=== PATIENT | female | born 2005 | race Caucasian/White ===

== ENCOUNTER 2024-10-30 13:37 | Outpatient (AMB) | payer MEDICAID, SELFPAY ==
--- NOTE | 2024-10-30 13:50 | AMB.OBINITIA ---
Vital Signs 10/30/24 13:53 Height 1.6 m Height Method Stated Weight 68.606 kg Weight Measurement Method Standing Scale BMI 26.8 BP 119/64 Blood Pressure Source Automatic Cuff Blood Pressure Location Left Upper Arm Position Sitting Respiration 18 Pulse 69 Pulse Source Monitor Temp 97.2 F Temp Source Oral Pulse Oximetry (%) 99 Oxygen Delivery Method Room Air Allergies/Home Meds Allergies & Medications Allergies No Known Allergies Allergy (Verified 10/30/24 13:54) Medication Reconciliation No Known Home Medications 10/30/24 [History Confirmed 10/30/24] Intake Visit Data Collection New Patient or Established: New Patient (never been to [facility]) Reason for Visit:: NOBI Seen by Clinical Staff ONLY (RN/MA): No Construction Services Technician Required: No Do You Feel Safe at Home: Yes Authorities Contacted: N/A PCP or OBGYN visit in last 3 months: No Hx Now: Yes Are you currently on any form of Control: No Last menstrual period: 09/12/24 Pain Present Currently: No Pain Scale Used: Neil-Guzman/Numerical Pain scale:: 0 Smoking Status Smoking Status: Never smoker Questionnaires Covid-19 Vaccine Questionnaire Has patient been vacinated for Covid-19 Have you been vacinated for Covid-19: No PHQ-9 PHQ-2 Over the last 2 weeks, how often have you been bothered by any of the following problems? 1. Little interest or pleasure in doing things: not at all 2. Feeling down, depressed, or hopeless: not at all Total score: 0 PHQ-9 3. Trouble falling or staying asleep, or sleeping too much: Not at all 4. Feeling tired or having little energy: Not at all 5. Poor appetite or overeating: Not at all 6. Feeling bad about yourself - or that you are a failure or have let yourself or your family down: Not at all 7. Trouble concentrating on things, such as reading the newspaper or watching television: Not at all 8. Moving or speaking so slowly that other people could have noticed? - Or the opposite - being so fidgety or restless that you have been moving around a lot more than usual: not at all 9. Thoughts that you would be better off or of hurting yourself in some way: Not at all Total score: 0 If you checked off any problems, how difficult have these problems made it for you to do your work, take care of things at home, or get along with other people?: not difficult at all Source: Developed by Drs. Alexander Vargas, Keyla Dyer, Vernon Solis and colleagues, with an educational gordy from [employer]. Depression screen completed yes Social History Living Situation History Marital Status: Lives With: Family Housing: House Tobacco History Smoking Status: Never smoker Second Hand Smoke Exposure: No Alcohol History Alcohol Intake: Never Domestic Abuse History Do You Feel Safe at Home: Yes Past Medical History Past Medical History Have you ever been diagnosed with any of the following: History of Present Illness HPI Narrative 19-year-old 2 para 0 first visit to [facility] OB clinic. Patient is here for new OB. Last period September 12, 2024. This gives EDC 06/19/2025. Patient 7 weeks today. Sure dates. Patient denies social habits. Denies surgeries. Denies chronic illness. Her and her partner are excited to have a baby. Patient reports that she feels good she does not have any complaints at all of her right right now. Denies any signs of miscarriage OB Initial Visit OB Flowsheet OB Flowsheet Initial Weight: Not Recorded Date <del>?</del> EGA Weight Edema CTX Effacement BP Fundal ht Pres Dilation Effacement Station Visit Note Alb Glu FHR Mov 10/30/24 <del>?</del> 6w 6d 68.606 kg absent absent 119/64 6.0 19-year-old 2 para 0 for OBI today. She has sure dates. Last. September 12, 2024. This gives EDC of 06/19/2025. Patient has no complaints today. Denies SAB complaints. Order OB panel today. And I ordered an ultrasound at [facility] for viability and dates. And patient to continue vitamins. Return in 4 weeks OB check Menstrual History Menstrual reliability: definite Flow: normal Menstrual regularity: regular Monthly: Yes Age at menarche: 10 On control pills at conception: No Associated symptoms (LMP): Reports nausea OB History : 2 Para: 0 Hx # Pregnancies: 0 Hx Total # of Abortions (Spontaneous & Elective): 1 # of Living Children: 0 Infection History & Risk Evaluation History of STDs: none HIV risk evaluation: low risk Hepatitis B risk evaluation: low risk Patient or partner has history of Genital Herpes: No Varicella/chicken pox status: immunized Genetic Screening & History Genetic Screening/Teratology Counseling - Includes patient, baby's father, or anyone in either family with: 1. Patient's age 35 years or older as of estimated date of delivery: No 2. Thalassemia (Lao, British, Mediterranean, or Background); MCV less than 80: No 3. Neural Tube Defect (Meningomyelocele, Spina Bifida, or Anencephaly): No 4. Congenital Heart Defect: No 5. Down Syndrome: No 6. Ranjit-Sachs (Ashkenazi Presybeterian, Cajun, Ukrainian [place]): No 7. Sonali Disease (Ashkenazi Presybeterian): No 8. Familial Dysautonomia (Ashkenazi Presybeterian): No 9. Sickle Cell Disease or Trait (): No 10. Hemophilia or other blood disorders: No 11. Muscular Dystrophy: No 12. Cystic Fibrosis: No 13. [place]'s Chorea: No 14. Mental Retardation/Autism: No 15. Other inherited genetic or chromosomal disorder: No 16. Maternal Metabolic Disorder (EG,TYPE 1 Diabetes, PKU): No 17. Patient or baby's father had a child with defects not listed above: No 18. Recurrent loss or a stillbirth: No 19. Medications (including supplements, vitamins, herbs or otc drugs)/illicit/recreational drugs/alcohol since last menstrual period: No 20. Any other: No Infection History 1. Live with someone with TB or exposed to TB: No 2. Rash or viral illness since last menstrual period: No 3. Hepatitis B,C: No Other (see comments) Source: [employer] Review of Systems Review of Systems Systems Reviewed: All systems reviewed, normal except as documented Gastrointestinal Gastrointestinal: Reports nausea Exam General Limitations: no limitations General Appearance: alert, in no apparent distress, comfortable, cooperative, healthy appearing, well developed and well groomed Chest Chest inspection: Present normal inspection and symmetric chest wall rise Resp Respiratory exam: Present normal lung sounds bilaterally Card Cardiovascular exam: Present regular rate, normal rhythm and normal heart sounds Abdominal Abdominal exam: Present soft and normal bowel sounds Psych Psychiatric exam: Present normal affect and normal mood Assessment & Plan Diagnosis / Problem List (1) Encounter for supervision of normal first , first trimester: Status: Acute Plan Continue vitamins. Order OB panel today. Scheduled ultrasound for viability and dates. Discussed comfort measures for first trimester discomforts. Discussed diet and regular exercise. SAB precautions. Return in 4 weeks OB check. Additional Plan Follow Up: 4 Weeks (4 week OBC) Office Procedures OB Clinic LOC & Office Proc's Nursing/Assessment Patient Status: Initial/New Patient OB Clinic Nursing Assessment: BP Monitoring, Medication Reconciliation, Update PMH in EMR and Vital Signs OB Clinic Coordination of Care: Complex Care and Chronic Disease 1-5, Consent,records obtained, informed consent, Lab and Imaging orders and Staff clarify orders New Patient Charge New Patient Point Assignment: [id number] New Patient Point Charge: SLATE HANDLER Level 3 ([id number])
[2024-10-30 13:53] VITALS: BP 119/64; PULSE 69; RESP 18; TEMP 36.2; O2SAT 99; BMI 26.8
== END 2024-10-30 14:03 | disposition home or self-care (01) ==
LOC: HODSOBC 13:37
PROVIDERS: Supervising Provider Advanced Practice Midwife; Visit Provider Advanced Practice Midwife
DX: Z34.81 Encounter for supervision of other normal pregnancy, first trimester (principal); Z3A.01 Less than 8 weeks gestation of pregnancy; Z87.59 Personal history of other complications of pregnancy, childbirth and the puerperium
CPT/HCPCS: 99203; G0463

== ENCOUNTER 2024-11-27 14:57 | Outpatient (AMB) | payer MEDICAID, SELFPAY ==
--- NOTE | 2024-11-27 15:07 | AMB.OBVISIT ---
Vital Signs 11/27/24 15:13 Height 1.6 m Height Method Stated Weight 69.626 kg Weight Measurement Method Standing Scale BMI 27.1 BP 123/74 Blood Pressure Source Automatic Cuff Blood Pressure Location Right Upper Arm Position Sitting Respiration 18 Pulse 98 Pulse Source Monitor Temp 98.4 F Temp Source Oral Pulse Oximetry (%) 98 Oxygen Delivery Method Room Air Allergies/Home Meds Allergies & Medications Allergies No Known Allergies Allergy (Verified 11/27/24 15:14) Medication Reconciliation No Known Home Medications 10/30/24 [History Confirmed 11/27/24] Intake Visit Data Collection New Patient or Established: Established Patient (seen at [facility] within 3 years) Reason for Visit:: CARE Seen by Clinical Staff ONLY (RN/MA): No Us Marketing Director Required: No Do You Feel Safe at Home: Yes Authorities Contacted: N/A PCP or OBGYN visit in last 3 months: Yes Hx Now: Yes Are you currently on any form of Control: No Pain Present Currently: No Pain Scale Used: Neil-Guzman/Numerical Pain scale:: 0 Smoking Status Smoking Status: Never smoker Questionnaires Covid-19 Vaccine Questionnaire Has patient been vacinated for Covid-19 Have you been vacinated for Covid-19: Yes PHQ-9 PHQ-2 Over the last 2 weeks, how often have you been bothered by any of the following problems? 1. Little interest or pleasure in doing things: not at all 2. Feeling down, depressed, or hopeless: not at all Total score: 0 PHQ-9 3. Trouble falling or staying asleep, or sleeping too much: Not at all 4. Feeling tired or having little energy: Not at all 5. Poor appetite or overeating: Not at all 6. Feeling bad about yourself - or that you are a failure or have let yourself or your family down: Not at all 7. Trouble concentrating on things, such as reading the newspaper or watching television: Not at all 8. Moving or speaking so slowly that other people could have noticed? - Or the opposite - being so fidgety or restless that you have been moving around a lot more than usual: not at all 9. Thoughts that you would be better off or of hurting yourself in some way: Not at all Total score: 0 Source: Developed by Drs. Alexander Vargas, Keyla Dyer, Vernon Solis and colleagues, with an educational gordy from [employer]. Depression screen completed yes Social History Living Situation History Lives With: Family Housing: House Tobacco History Smoking Status: Never smoker Second Hand Smoke Exposure: No Alcohol History Alcohol Intake: Never Domestic Abuse History Do You Feel Safe at Home: Yes Care OB Visit Log OB Flowsheet Initial Weight: Not Recorded Date <del>?</del> EGA Weight BP Alb Glu CTX Pres Fundal ht FHR Mov Dilation Station Effacement Hx Notes Visit Note 10/30/24 <del>?</del> 6w 5d 68.606 kg 119/64 absent 6.0 19-year-old 2 para 0 for OBI today. She has sure dates. Last. September 12, 2024. This gives EDC of 06/19/2025. Patient has no complaints today. Denies SAB complaints. Order OB panel today. And I ordered an ultrasound at [facility] for viability and dates. And patient to continue vitamins. Return in 4 weeks OB check 11/27/24 <del>?</del> 10w 5d 69.626 kg 123/74 absent unknown 11 170 active no c/o SAB symptom. no compliants of [address] [place] [address] discomfort. compliant with PNV. NIPT and carrier screen today, schedule MFM anatomy scan schedule mfm scan, NIPT and carrier screen, RTC 4 week.continue PNV REDD Calculator Estimated Delivery Date Method Current WG Current Estimate 06/20/25 Ultrasound #1 10w 5d Other Estimates 06/19/25 LMP (Certain) 10w 6d Notes Visit Date: 11/27/24 Last Updated by: Amy Willard CNM 19 yo . LMP 09/12/24. EDC 06/19/25, sono 11/07: 7w:: 06/21/25. A+,abs-,rpr;;nr, rub imm, hbssag-,hiv-,GC/CT-, HC-, Office Procedures OB Clinic LOC & Office Proc's Nursing/Assessment Patient Status: Established Patient OB Clinic Nursing Assessment: Medication Reconciliation, Update PMH in EMR and Vital Signs OB Clinic Coordination of Care: Complex Care and Chronic Disease 1-5, Consent,records obtained, informed consent, Education Simp Pt/Fam, Lab and Imaging orders, Results/Orders obtained and Staff clarify orders Special Needs: Heart tones Established Patient Charge Established Patient Point Assignment: 135 Established Patient Point Charge: EP Level 4 (120-155) Assessment & Plan Diagnosis / Problem List (1) Encounter for supervision of normal first , first trimester: Status: Acute Plan NIPT and carrier screen, schedule MFM anatomy scan, continue PNV, sab precaution. rtc 4 week OBC Additional Plan Follow Up: 4 Weeks (OBC)
[2024-11-27 15:13] VITALS: BP 123/74; PULSE 98; RESP 18; TEMP 36.9; O2SAT 98; BMI 27.1
== END 2024-11-27 15:40 | disposition home or self-care (01) ==
LOC: HODSOBC 14:57
PROVIDERS: Supervising Provider Advanced Practice Midwife; Visit Provider Advanced Practice Midwife
DX: Z34.81 Encounter for supervision of other normal pregnancy, first trimester (principal); Z3A.10 10 weeks gestation of pregnancy
CPT/HCPCS: 81001; 99214; G0463

== ENCOUNTER 2024-12-25 14:52 | Outpatient (AMB) | payer MEDICAID, SELFPAY ==
--- NOTE | 2024-12-25 15:43 | OBCLNT_ITS ---
Vital Signs 12/25/24 15:44 Height 1.6 m Height Method Stated Weight 73.595 kg Weight Measurement Method Standing Scale BMI 28.7 BP 115/70 Blood Pressure Source Automatic Cuff Blood Pressure Location Right Upper Arm Position Sitting Respiration 17 Pulse 68 Pulse Source Monitor Temp 98.0 F Temp Source Temporal Artery Scan Pulse Oximetry (%) 98 Oxygen Delivery Method Room Air Allergies/Home Meds Allergies & Medications Allergies No Known Allergies Allergy (Verified 12/25/24 15:44) Medication Reconciliation No Known Home Medications 10/30/24 [History Confirmed 12/25/24] Intake Visit Data Collection New Patient or Established: Established Patient (seen at [facility] within 3 years) Reason for Visit:: OBC Seen by Clinical Staff ONLY (RN/MA): No President Celebrity Acquistion Required: No Do You Feel Safe at Home: Yes Authorities Contacted: N/A PCP or OBGYN visit in last 3 months: Yes Date of Last PCP or OBGYN visit: 11/27/24 Hx Now: Yes Are you currently on any form of Control: No Pain Present Currently: No Pain Scale Used: Neil-Guzman/Numerical Pain scale:: 0 Smoking Status Smoking Status: Never smoker Questionnaires Covid-19 Vaccine Questionnaire Has patient been vacinated for Covid-19 Have you been vacinated for Covid-19: No PHQ-9 PHQ-2 Over the last 2 weeks, how often have you been bothered by any of the following problems? 1. Little interest or pleasure in doing things: not at all 2. Feeling down, depressed, or hopeless: not at all Total score: 0 PHQ-9 3. Trouble falling or staying asleep, or sleeping too much: Not at all 4. Feeling tired or having little energy: Not at all 5. Poor appetite or overeating: Not at all 6. Feeling bad about yourself - or that you are a failure or have let yourself or your family down: Not at all 7. Trouble concentrating on things, such as reading the newspaper or watching television: Not at all 8. Moving or speaking so slowly that other people could have noticed? - Or the opposite - being so fidgety or restless that you have been moving around a lot more than usual: not at all 9. Thoughts that you would be better off or of hurting yourself in some way: Not at all Total score: 0 If you checked off any problems, how difficult have these problems made it for you to do your work, take care of things at home, or get along with other people?: not difficult at all Source: Developed by Drs. Alexander Vargas, Keyla Dyer, Vernon Solis and colleagues, with an educational gordy from [employer]. Depression screen completed yes Social History Living Situation History Marital Status: Lives With: Family Housing: House Tobacco History Smoking Status: Never smoker Second Hand Smoke Exposure: No Alcohol History Alcohol Intake: Never Domestic Abuse History Do You Feel Safe at Home: Yes Care OB Visit Log OB Flowsheet Initial Weight: Not Recorded Date -?-?-?-?-?-?-?-?-?-?-?-?- EGA Weight BP Alb Glu CTX Pres Fundal ht FHR Mov Dilation Station Effacement Hx Notes Visit Note 10/30/24 -?-?-?-?-?-?-?-?-?-?-?-?- 6w 5d 68.606 kg 119/64 absent 6.0 19-year-old 2 para 0 for OBI today. She has sure dates. Last. September 12, 2024. This gives EDC of 06/19/2025. Patient has no complaints today. Denies SAB complaints. Order OB panel today. And I ordered an ultrasound at [facility] for viability and dates. And patient to continue vitamins. Return in 4 weeks OB check 11/27/24 -?-?-?-?-?-?-?-?-?-?-?-?- 10w 5d 69.626 kg 123/74 absent unknown 11 170 active no c/o SAB symptom. no compliants of [address] [place] [address] discomfort. compliant with PNV. NIPT and carrier screen today, schedule MFM anatomy scan schedule mfm scan, NIPT and carrier screen, RTC 4 week.continue PNV 12/25/24 -?-?-?-?-?-?-?-?-?-?-?-?- 14w 5d 73.595 kg 115/70 absent unknown 15 156 active NO ob complaints. mfm today, f/u 01/06 for poor dates, no complaints today afp/NIPT draw on 01/04, f/u mfm 01/06, poor dates, discuss SAB precaution, hydrate, rtc 4 week REDD Calculator Estimated Delivery Date Method Current WG Current Estimate 06/20/25 Ultrasound #1 14w 5d Other Estimates 06/19/25 LMP (Certain) 14w 6d Notes Visit Date: 11/27/24 Last Updated by: Amy Willard, CNM 19 yo . LMP 09/12/24. EDC 06/19/25, sono 11/07: 7w:: 06/21/25. A+,abs- ,rpr;;nr, rub imm, hbssag-,hiv-,GC/CT-, HC-, Office Procedures OB Clinic LOC & Office Proc's Nursing/Assessment Patient Status: Established Patient OB Clinic Nursing Assessment: Medication Reconciliation, Update PMH in EMR and Vital Signs OB Clinic Coordination of Care: Complex Care and Chronic Disease 1-5, Consent,records obtained, informed consent, Education Simp Pt/Fam and Staff clarify orders Special Needs: Heart tones Established Patient Charge Established Patient Point Assignment: 115 Established Patient Point Charge: EP Level 3 (80-115) Assessment & Plan Diagnosis / Problem List (1) Supervision of high risk , unspecified, second trimester: Status: Acute Plan AFP/NOPT 01/04. discuss sab precaution and dates, f/u mfm 01/06. rtc 4 week obc Additional Plan Follow Up: 4 Weeks (obc)
[2024-12-25 15:44] VITALS: BP 115/70; PULSE 68; RESP 17; TEMP 36.7; O2SAT 98; BMI 28.7
== END 2024-12-25 16:04 | disposition home or self-care (01) ==
PROVIDERS: Supervising Provider Advanced Practice Midwife; Visit Provider Advanced Practice Midwife
DX: O09.92 Supervision of high risk pregnancy, unspecified, second trimester (principal); Z3A.14 14 weeks gestation of pregnancy
CPT/HCPCS: 99213; G0463

== ENCOUNTER 2025-01-22 15:14 | Outpatient (AMB) | payer MEDICAID, SELFPAY ==
[2025-01-22 15:17] VITALS: BP 122/75; PULSE 74; RESP 17; TEMP 36.8; O2SAT 98; BMI 29.6
--- NOTE | 2025-01-22 15:17 | OBCLNT_ITS ---
Vital Signs 01/22/25 15:17 Height 1.6 m Height Method Measured Weight 75.863 kg Weight Measurement Method Standing Scale BMI 29.6 BP 122/75 Blood Pressure Source Automatic Cuff Blood Pressure Location Right Upper Arm Position Sitting Respiration 17 Pulse 74 Pulse Source Monitor Temp 98.2 F Temp Source Temporal Artery Scan Pulse Oximetry (%) 98 Oxygen Delivery Method Room Air Allergies/Home Meds Allergies & Medications Allergies No Known Allergies Allergy (Verified 01/22/25 15:18) Medication Reconciliation vits no.126-ferrous fum 28 mg iron-folic acid 800 mcg tablet (Classic ) tab PO 01/22/25 [History Confirmed 01/22/25] Intake Visit Data Collection New Patient or Established: Established Patient (seen at [facility] within 3 years) Reason for Visit:: OBC Consent obtained for Telemed Visit: No Seen by Clinical Staff ONLY (RN/MA): No Senior Unix Administrator Required: No Do You Feel Safe at Home: Yes Authorities Contacted: N/A PCP or OBGYN visit in last 3 months: Yes Date of Last PCP or OBGYN visit: 12/25/24 Hx Now: Yes Are you currently on any form of Control: No Pain Present Currently: No Pain Scale Used: Neil-Guzman/Numerical Pain scale:: 0 Smoking Status Smoking Status: Never smoker Questionnaires Covid-19 Vaccine Questionnaire Has patient been vacinated for Covid-19 Have you been vacinated for Covid-19: Yes PHQ-9 PHQ-2 Over the last 2 weeks, how often have you been bothered by any of the following problems? 1. Little interest or pleasure in doing things: not at all 2. Feeling down, depressed, or hopeless: not at all Total score: 0 PHQ-9 3. Trouble falling or staying asleep, or sleeping too much: Not at all 4. Feeling tired or having little energy: Not at all 5. Poor appetite or overeating: Not at all 6. Feeling bad about yourself - or that you are a failure or have let yourself or your family down: Not at all 7. Trouble concentrating on things, such as reading the newspaper or watching television: Not at all 8. Moving or speaking so slowly that other people could have noticed? - Or the opposite - being so fidgety or restless that you have been moving around a lot more than usual: not at all 9. Thoughts that you would be better off or of hurting yourself in some way: Not at all Total score: 0 If you checked off any problems, how difficult have these problems made it for you to do your work, take care of things at home, or get along with other people?: not difficult at all Source: Developed by Drs. Alexander Vargas, Keyla Dyer, Vernon Solis and colleagues, with an educational gordy from [employer]. Depression screen completed yes Social History Living Situation History Lives With: Family Housing: House Tobacco History Smoking Status: Never smoker Second Hand Smoke Exposure: No Alcohol History Alcohol Intake: Never Domestic Abuse History Do You Feel Safe at Home: Yes Care OB Visit Log OB Flowsheet Initial Weight: Not Recorded Date -?-?-?-?-?-?-?-?-?-?-?-?- EGA Weight BP Alb Glu CTX Pres Fundal ht FHR Mov Dilation Station Effacement Hx Notes Visit Note 10/30/24 -?-?-?-?-?-?-?-?-?-?-?-?- 6w 5d 68.606 kg 119/64 absent 6.0 19-year-old 2 para 0 for OBI today. She has sure dates. Last. September 12, 2024. This gives EDC of 06/19/2025. Patient has no complaints today. Denies SAB complaints. Order OB panel today. And I ordered an ultrasound at [facility] for viability and dates. And patient to continue vitamins. Return in 4 weeks OB check 11/27/24 -?-?-?-?-?-?-?-?-?-?-?-?- 10w 5d 69.626 kg 123/74 absent unknown 11 170 active no c/o SAB symptom. no compliants of discomfort. compliant with PNV. NIPT and carrier screen today, schedule MFM anatomy scan schedule mfm scan, NIPT and carrier screen, RTC 4 week.continue PNV 12/25/24 -?-?-?-?-?-?-?-?-?-?-?-?- 14w 5d 73.595 kg 115/70 absent unknown 15 156 active NO ob complaints. mfm today, f/u 01/06 for poor dates, no complaints today afp/NIPT draw on 01/04, f/u mfm 01/06, poor dates, discuss SAB precaution, hydrate, rtc 4 week 01/22/25 -?-?-?-?-?-?-?-?-?-?-?-?- 18w 5d 75.863 kg 122/75 absent unknown 18 156 active no ob complaints, + FM, no uc,vb,ROM. mfm appt, 02/05/25 RTC 4 wk obc, discuss sab/ptl precaution, f/u with [facility] 02/05/25 REDD Calculator Estimated Delivery Date Method Current WG Current Estimate 06/20/25 Ultrasound #1 18w 5d Other Estimates 06/19/25 LMP (Certain) 18w 6d Notes Visit Date: 01/22/25 Last Updated by: Amy Willard CNM 01/22/25: NIPT:neg/female, carrier screen negative, AFP- Visit Date: 11/27/24 Last Updated by: Amy Willard CNM 19 yo . LMP 09/12/24. EDC 06/19/25, sono 11/07: 7w:: 06/21/25. A+,abs- ,rpr;;nr, rub imm, hbssag-,hiv-,GC/CT-, HC-, Office Procedures OB Clinic LOC & Office Proc's Nursing/Assessment Patient Status: Established Patient OB Clinic Nursing Assessment: Medication Reconciliation, Update PMH in EMR and Vital Signs OB Clinic Coordination of Care: Complex Care and Chronic Disease 1-5, Consent,records obtained, informed consent, Education Simp Pt/Fam and 4+ Authorizations needed Special Needs: Heart tones Established Patient Charge Established Patient Point Assignment: 130 Established Patient Point Charge: EP Level 4 (120-155) Assessment & Plan Diagnosis / Problem List (1) Supervision of high risk , unspecified, second trimester: Status: Acute Plan discuss sab precaution/ptl precaution, keep mfm appt,02/05. hydrate. continue pnv. discuss NIPT/AFP. rtc 4 week obc Additional Plan Follow Up: 4 Weeks (obc)
== END 2025-01-22 15:44 | disposition home or self-care (01) ==
LOC: HODSOBC 15:14
PROVIDERS: Supervising Provider Advanced Practice Midwife; Visit Provider Advanced Practice Midwife
DX: O09.92 Supervision of high risk pregnancy, unspecified, second trimester (principal); Z3A.18 18 weeks gestation of pregnancy
CPT/HCPCS: 99214; G0463

== ENCOUNTER 2025-02-19 14:50 | Outpatient (AMB) | payer MEDICAID, SELFPAY ==
[2025-02-19 15:17] VITALS: BP 127/80; PULSE 76; RESP 17; TEMP 36.6; O2SAT 98; BMI 30.9
--- NOTE | 2025-02-19 15:17 | OBCLNT_ITS ---
Vital Signs 02/19/25 15:17 Height 1.6 m Height Method Measured Weight 79.038 kg Weight Measurement Method Standing Scale BMI 30.9 BP 127/80 Blood Pressure Source Automatic Cuff Blood Pressure Location Right Upper Arm Position Sitting Respiration 17 Pulse 76 Pulse Source Monitor Temp 97.8 F Temp Source Temporal Artery Scan Pulse Oximetry (%) 98 Oxygen Delivery Method Room Air Allergies/Home Meds Allergies & Medications Allergies No Known Allergies Allergy (Verified 02/19/25 15:18) Medication Reconciliation vits no.126-ferrous fum 28 mg iron-folic acid 800 mcg tablet (Classic ) tab PO 01/22/25 [History Confirmed 02/19/25] Intake Visit Data Collection New Patient or Established: Established Patient (seen at [facility] within 3 years) Reason for Visit:: OBC Consent obtained for Telemed Visit: No Seen by Clinical Staff ONLY (RN/MA): No Java Solutions Architect Required: No Do You Feel Safe at Home: Yes Authorities Contacted: N/A PCP or OBGYN visit in last 3 months: Yes Date of Last PCP or OBGYN visit: 01/22/25 Hx Now: Yes Are you currently on any form of Control: No Pain Present Currently: No Pain Scale Used: Neil-Guzman/Numerical Pain scale:: 0 Smoking Status Smoking Status: Never smoker Questionnaires Covid-19 Vaccine Questionnaire Has patient been vacinated for Covid-19 Have you been vacinated for Covid-19: Yes PHQ-9 PHQ-2 Over the last 2 weeks, how often have you been bothered by any of the following problems? 1. Little interest or pleasure in doing things: not at all PHQ-9 8. Moving or speaking so slowly that other people could have noticed? - Or the opposite - being so fidgety or restless that you have been moving around a lot more than usual: not at all Source: Developed by Drs. Alexander Vargas, Keyla Dyer, Vernon Solis and colleagues, with an educational gordy from [employer]. Social History Living Situation History Lives With: Family Housing: House Tobacco History Smoking Status: Never smoker Second Hand Smoke Exposure: No Alcohol History Alcohol Intake: Never Domestic Abuse History Do You Feel Safe at Home: Yes Care OB Visit Log OB Flowsheet Initial Weight: Not Recorded Date -?-?-?-?-?-?-?-?-?-?-?-?- EGA Weight BP Alb Glu CTX Pres Fundal ht FHR Mov Dilation Station Effacement Hx Notes Visit Note 10/30/24 -?-?-?-?-?-?-?-?-?-?-?-?- 6w 6d 68.606 kg 119/64 absent 6.0 19-year-old 2 para 0 for OBI today. She has sure dates. Last. September 12, 2024. This gives EDC of 06/19/2025. Patient has no complaints today. Denies SAB complaints. Order OB panel today. And I ordered an ultrasound at [facility] for viability and dates. And patient to continue vitamins. Return in 4 weeks OB check 11/27/24 -?-?-?-?-?-?-?-?-?-?-?-?- 10w 6d 69.626 kg 123/74 absent unknown 11 170 active no c/o SAB symptom. no compliants of [facility] discomfort. compliant with PNV. NIPT and carrier screen today, schedule MFM anatomy scan schedule mfm scan, NIPT and carrier screen, RTC 4 week.continue PNV 12/25/24 -?-?-?-?-?-?-?-?-?-?-?-?- 14w 6d 73.595 kg 115/70 absent unknown 15 156 active NO ob complaints. mfm today, f/u 01/06 for poor dates, no complaints today afp/NIPT draw on 01/04, f/u mfm 01/06, poor dates, discuss SAB precaution, hydrate, rtc 4 week 01/22/25 -?-?-?-?-?-?-?-?-?-?-?-?- 18w 6d 75.863 kg 122/75 absent unknown 18 156 active no ob complaints, + FM, no uc,vb,ROM. mfm appt, 02/05/25 RTC 4 wk obc, discuss sab/ptl precaution, f/u with MFM 02/05/25 02/19/25 -?-?-?-?-?-?-?-?-?-?-?-?- 22w 6d 79.038 kg 127/80 absent unknown 22 156 active No OB complaints. Fetus active. Denies leaking, denies bleeding, denies contractions. Return in 4 weeks for OB check. Third trimester labs next visit. Follow-up ultrasound at 32 weeks for growth. Discussed labor precautions REDD Calculator Estimated Delivery Date Method Current WG Current Estimate 06/19/25 LMP (Certain) 22w 6d Other Estimates 06/20/25 Ultrasound #1 22w 5d Notes Visit Date: 02/19/25 Last Updated by: Aym Willard CNM 19 yo . l1st sono 11/07/24 IUP 7w6. edc 06/20/25. OB panel: A+,abs-, rpr;;nr, rub imm, hbsag-, HIV-,HC-, gc/ct- lmp 09/12/24. EDC: 06/19/25 Visit Date: 01/22/25 Last Updated by: Amy Willard CNM 01/22/25: NIPT:neg/female, carrier screen negative, AFP- Visit Date: 11/27/24 Last Updated by: Amy Willard CNM 19 yo . LMP 09/12/24. EDC 06/19/25, sono 11/07: 7w:: 06/21/25. A+,abs- ,rpr;;nr, rub imm, hbssag-,hiv-,GC/CT-, HC-, Office Procedures OB Clinic LOC & Office Proc's Nursing/Assessment Patient Status: Established Patient OB Clinic Nursing Assessment: Medication Reconciliation, Update PMH in EMR and Vital Signs OB Clinic Coordination of Care: Complex Care and Chronic Disease 1-5, Consent,records obtained, informed consent, Education Simp Pt/Fam, 4+ Authorizations needed and Results/Orders obtained Special Needs: Heart tones Established Patient Charge Established Patient Point Assignment: 135 Established Patient Point Charge: EP Level 4 (120-155) Assessment & Plan Diagnosis / Problem List (1) Supervision of high risk , unspecified, second trimester: Status: Acute Plan 3rd tri lab NV, discuss ptl prcaution, continue PNV, increase fluid. f/u growth sono at 32 week. rtc 4 week Additional Plan Follow Up: 4 Weeks (obc)
== END 2025-02-19 15:28 | disposition home or self-care (01) ==
LOC: HODSOBC 14:50
PROVIDERS: Supervising Provider Advanced Practice Midwife; Visit Provider Advanced Practice Midwife
DX: O09.92 Supervision of high risk pregnancy, unspecified, second trimester (principal); Z3A.22 22 weeks gestation of pregnancy
CPT/HCPCS: 99214; G0463

== ENCOUNTER 2025-03-27 14:02 | Outpatient (AMB) | payer MEDICAID, SELFPAY ==
[2025-03-27 14:12] VITALS: BP 126/76; PULSE 71; RESP 14; TEMP 36.4; O2SAT 98; BMI 32.8
--- NOTE | 2025-03-27 14:12 | OBCLNT_ITS ---
Vital Signs 03/27/25 14:12 Height 1.6 m Height Method Stated Weight 83.915 kg Weight Measurement Method Standing Scale BMI 32.8 BP 126/76 Blood Pressure Source Automatic Cuff Blood Pressure Location Left Upper Arm Position Sitting Respiration 14 Pulse 71 Pulse Source Monitor Temp 97.6 F Temp Source Oral Pulse Oximetry (%) 98 Oxygen Delivery Method Room Air Allergies/Home Meds Allergies & Medications Allergies No Known Allergies Allergy (Verified 03/27/25 14:14) Medication Reconciliation vits no.126-ferrous fum 28 mg iron-folic acid 800 mcg tablet (Classic ) tab PO 01/22/25 [History Confirmed 03/27/25] Intake Visit Data Collection New Patient or Established: Established Patient (seen at [facility] within 3 years) Reason for Visit:: CARE Seen by Clinical Staff ONLY (RN/MA): No 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 1. Little interest or pleasure in doing things: not at all 2. Feeling down, depressed, or hopeless: not at all Total score: 0 PHQ-9 3. Trouble falling or staying asleep, or sleeping too much: Not at all 4. Feeling tired or having little energy: Not at all 5. Poor appetite or overeating: Not at all 6. Feeling bad about yourself - or that you are a failure or have let yourself or your family down: Not at all 7. Trouble concentrating on things, such as reading the newspaper or watching television: Not at all 8. Moving or speaking so slowly that other people could have noticed? - Or the opposite - being so fidgety or restless that you have been moving around a lot more than usual: not at all 9. Thoughts that you would be better off or of hurting yourself in some way: Not at all Total score: 0 Source: Developed by Drs. Alexander Vargas, Keyla Dyer, Vernon Solis and colleagues, with an educational gordy from [employer]. Depression screen completed yes Social History Living Situation History Lives With: Family Housing: House Tobacco History Smoking Status: Never smoker Second Hand Smoke Exposure: No Alcohol History Alcohol Intake: Never Domestic Abuse History Do You Feel Safe at Home: Yes Care OB Visit Log OB Flowsheet Initial Weight: Not Recorded Date -?-?-?-?-?-?-?-?-?-?-?-?- EGA Weight BP Alb Glu CTX Pres Fundal ht FHR Mov Dilation Station Effacement Hx Notes Visit Note 10/30/24 -?-?-?-?-?-?-?-?-?-?-?-?- 6w 6d 68.606 kg 119/64 absent 6.0 19-year-old 2 para 0 for OBI today. She has sure dates. Last. September 12, 2024. This gives EDC of 06/19/2025. Patient has no complaints today. Denies SAB complaints. Order OB panel today. And I ordered an ultrasound at [facility] for viability and dates. And patient to continue vitamins. Return in 4 weeks OB check 11/27/24 -?-?-?-?-?-?-?-?-?-?-?-?- 10w 6d 69.626 kg 123/74 absent unknown 11 170 active no c/o SAB symptom. no compliants of [facility] discomfort. compliant with PNV. NIPT and carrier screen today, schedule MFM anatomy scan schedule mfm scan, NIPT and carrier screen, RTC 4 week.continue PNV 12/25/24 -?-?-?-?-?-?-?-?-?-?-?-?- 14w 6d 73.595 kg 115/70 absent unknown 15 156 active NO ob complaints. mfm today, f/u 01/06 for poor dates, no complaints today afp/NIPT draw on 01/04, f/u mfm 01/06, poor dates, discuss SAB precaution, hydrate, rtc 4 week 01/22/25 -?-?-?-?-?-?-?-?-?-?-?-?- 18w 6d 75.863 kg 122/75 absent unknown 18 156 active no ob complaints, + FM, no uc,vb,ROM. [facility] appt, 02/05/25 RTC 4 wk obc, discuss sab/ptl precaution, f/u with [facility] 02/05/25 02/19/25 -?-?-?-?-?-?-?-?-?-?-?-?- 22w 6d 79.038 kg 127/80 absent unknown 22 156 active No OB complaints. Fetus active. Denies leaking, denies bleeding, denies contractions. Return in 4 weeks for OB check. Third trimester labs next visit. Follow-up ultrasound at 32 weeks for growth. Discussed labor precautions 03/27/25 -?-?-?-?-?-?-?-?-?-?-?-?- 28w 0d 83.915 kg 126/76 absent unknown 28 156 active No OB complaints. Fetus active. No labor complaints such as bleeding, leaking, contractions Discussed diet a nd weight gain. Avoid sugary foods. Lab slip for third trimester labs given. Schedule sono for growth. Discussed labor precautions. Return in 3 weeks OB check REDD Calculator Estimated Delivery Date Method Current WG Current Estimate 06/19/25 LMP (Certain) 28w 0d Other Estimates 06/20/25 Ultrasound #1 27w 6d 06/19/25 Ultrasound #2 28w 0d 06/19/25 Manual 28w 0d final REDD: 06/10 Notes Visit Date: 02/19/25 Last Updated by: Amy Willard CNM 19 yo . l1st sono 11/07/24 IUP 7w6. edc 06/20/25. OB panel: A+,abs-, rpr;;nr, rub imm, hbsag-, HIV-,HC-, gc/ct- lmp 09/12/24. EDC: 06/19/25 Visit Date: 01/22/25 Last Updated by: Amy Willard CNM 01/22/25: NIPT:neg/female, carrier screen negative, AFP- Visit Date: 11/27/24 Last Updated by: Amy Willard CNM 19 yo . LMP 09/12/24. EDC 06/19/25, sono 11/07: 7w:: 06/21/25. A+,abs- ,rpr;;nr, rub imm, hbssag-,hiv-,GC/CT-, HC-, Office Procedures OB Clinic LOC & Office Proc's Nursing/Assessment Patient Status: Established Patient OB Clinic Nursing Assessment: Medication Reconciliation, Update PMH in EMR and Vital Signs OB Clinic Coordination of Care: Complex Care and Chronic Disease 1-5, Consent,records obtained, informed consent, Education Simp Pt/Fam, 1 Ins Authorization, Lab and Imaging orders, Results/Orders obtained and Staff clarify orders Special Needs: Heart tones Established Patient Charge Established Patient Point Assignment: 150 Established Patient Point Charge: EP Level 4 (120-155) Assessment & Plan Diagnosis / Problem List (1) Encounter for supervision of high risk in third trimester, antepartum: Status: Acute Plan Third trimester labs. Discussed diet and weight gain. Avoid sugary foods. Schedule OB sono for growth. Discussed labor precautions. Return in 2 weeks OB check Additional Plan Follow Up: 3 Weeks (obc)
== END 2025-03-27 14:59 | disposition home or self-care (01) ==
LOC: HODSOBC 14:02
PROVIDERS: Supervising Provider Advanced Practice Midwife; Visit Provider Advanced Practice Midwife
DX: O09.93 Supervision of high risk pregnancy, unspecified, third trimester (principal); Z3A.28 28 weeks gestation of pregnancy
CPT/HCPCS: 99214; G0463

== ENCOUNTER 2025-04-24 15:05 | Outpatient (AMB) | payer MEDICAID, SELFPAY ==
--- NOTE | 2025-04-24 15:11 | AMB.OBVISIT ---
Vital Signs 04/24/25 15:12 Height 1.6 m Height Method Stated Weight 84.822 kg Weight Measurement Method Standing Scale BMI 33.1 BP 120/76 Blood Pressure Source Automatic Cuff Blood Pressure Location Right Upper Arm Position Sitting Respiration 17 Pulse 73 Pulse Source Monitor Temp 97.8 F Temp Source Temporal Artery Scan Pulse Oximetry (%) 98 Oxygen Delivery Method Room Air Allergies/Home Meds Allergies & Medications Allergies No Known Allergies Allergy (Verified 04/24/25 15:11) Medication Reconciliation vits no.126-ferrous fum 28 mg iron-folic acid 800 mcg tablet (Classic ) tab PO 01/22/25 [History Confirmed 04/24/25] Intake Visit Data Collection New Patient or Established: Established Patient (seen at [facility] within 3 years) Reason for Visit:: OBC Seen by Clinical Staff ONLY (RN/MA): No Hospital Monitor Required: No Do You Feel Safe at Home: Yes Authorities Contacted: N/A PCP or OBGYN visit in last 3 months: Yes Date of Last PCP or OBGYN visit: 03/27/25 Hx Now: Yes Are you currently on any form of Control: No Pain Present Currently: No Pain Scale Used: Neil-Guzman/Numerical Pain scale:: 0 Smoking Status Smoking Status: Never smoker Questionnaires Covid-19 Vaccine Questionnaire Has patient been vacinated for Covid-19 Have you been vacinated for Covid-19: Yes PHQ-9 PHQ-2 Over the last 2 weeks, how often have you been bothered by any of the following problems? 1. Little interest or pleasure in doing things: not at all 2. Feeling down, depressed, or hopeless: not at all Total score: 0 PHQ-9 3. Trouble falling or staying asleep, or sleeping too much: Not at all 4. Feeling tired or having little energy: Not at all 5. Poor appetite or overeating: Not at all 6. Feeling bad about yourself - or that you are a failure or have let yourself or your family down: Not at all 7. Trouble concentrating on things, such as reading the newspaper or watching television: Not at all 8. Moving or speaking so slowly that other people could have noticed? - Or the opposite - being so fidgety or restless that you have been moving around a lot more than usual: not at all 9. Thoughts that you would be better off or of hurting yourself in some way: Not at all Total score: 0 If you checked off any problems, how difficult have these problems made it for you to do your work, take care of things at home, or get along with other people?: not difficult at all Source: Developed by Drs. Alexander Vargas, Keyla Dyer, Vernon Solis and colleagues, with an educational gordy from [employer]. Depression screen completed yes Social History Living Situation History Marital Status: Life Partner Lives With: Family Housing: House Tobacco History Smoking Status: Never smoker Second Hand Smoke Exposure: No Alcohol History Alcohol Intake: Never Domestic Abuse History Do You Feel Safe at Home: Yes Care OB Visit Log OB Flowsheet Initial Weight: Not Recorded Date <del>?</del> EGA Weight BP Alb Glu CTX Pres Fundal ht FHR Mov Dilation Station Effacement Hx Notes Visit Note 10/30/24 <del>?</del> 6w 6d 68.606 kg 119/64 absent 6.0 19-year-old 2 para 0 for OBI today. She has sure dates. Last. September 12, 2024. This gives EDC of 06/19/2025. Patient has no complaints today. Denies SAB complaints. Order OB panel today. And I ordered an ultrasound at [facility] for viability and dates. And patient to continue vitamins. Return in 4 weeks OB check 11/27/24 <del>?</del> 10w 6d 69.626 kg 123/74 absent unknown 11 170 active no c/o SAB symptom. no compliants of [address] [place] [address] discomfort. compliant with PNV. NIPT and carrier screen today, schedule MFM anatomy scan schedule mfm scan, NIPT and carrier screen, RTC 4 week.continue PNV 12/25/24 <del>?</del> 14w 6d 73.595 kg 115/70 absent unknown 15 156 active NO ob complaints. mfm today, f/u 01/06 for poor dates, no complaints today afp/NIPT draw on 01/04, f/u mfm 01/06, poor dates, discuss SAB precaution, hydrate, rtc 4 week 01/22/25 <del>?</del> 18w 6d 75.863 kg 122/75 absent unknown 18 156 active no ob complaints, + FM, no uc,vb,ROM. [facility] appt, 02/05/25 RTC 4 wk obc, discuss sab/ptl precaution, f/u with [facility] 02/05/25 02/19/25 <del>?</del> 22w 6d 79.038 kg 127/80 absent unknown 22 156 active No OB complaints. Fetus active. Denies leaking, denies bleeding, denies contractions. Return in 4 weeks for OB check. Third trimester labs next visit. Follow-up ultrasound at 32 weeks for growth. Discussed labor precautions 03/27/25 <del>?</del> 28w 0d 83.915 kg 126/76 absent unknown 28 156 active No OB complaints. Fetus active. No labor complaints such as bleeding, leaking, contractions Discussed diet and weight gain. Avoid sugary foods. Lab slip for third trimester labs given. Schedule sono for growth. Discussed labor precautions. Return in 3 weeks OB check 04/24/25 <del>?</del> 32w 0d 84.822 kg 120/76 absent unknown 31 155 active Reports good movement. Denies labor complaints or OB complaints. Denies leaking, bleeding, contractions. Tdap next visit. Patient has an ultrasound at [facility] May 03. This discussed labor precautions and kick count twice a day. Increase fluids and reviewed diet and. Return in 2 weeks OB check REDD Calculator Estimated Delivery Date Method Current WG Current Estimate 06/19/25 LMP (Certain) 32w 0d Other Estimates 06/20/25 Ultrasound #1 31w 6d 06/19/25 Ultrasound #2 32w 0d 06/19/25 Manual 32w 0d final REDD: 06/19/25 Notes Visit Date: 04/24/25 Last Updated by: Amy Willard CNM 04/02: 3rd tri lab wnl Visit Date: 02/19/25 Last Updated by: Amy Willard CNM 19 yo . l1st sono 11/07/24 IUP 7w6. edc 06/20/25. OB panel: A+,abs-, rpr;;nr, rub imm, hbsag-, HIV-,HC-, gc/ct- lmp 09/12/24. EDC: 06/19/25 Visit Date: 01/22/25 Last Updated by: Amy Willard CNM 01/22/25: NIPT:neg/female, carrier screen negative, AFP- Visit Date: 11/27/24 Last Updated by: Amy Willard CNM 19 yo . LMP 09/12/24. EDC 06/19/25, sono 11/07: 7w:: 06/21/25. A+,abs-,rpr;;nr, rub imm, hbssag-,hiv-,GC/CT-, HC-, Office Procedures OBC Clinic LOC & Office Proc's Nursing/Assessment Patient Status: Established Patient OB Clinic Nursing Assessment: Medication Reconciliation, Update PMH in EMR and Vital Signs OB Clinic Coordination of Care: Complex Care and Chronic Disease 1-5, Education Complex Pt/Fam, Consent,records obtained, informed consent and Staff clarify orders Special Needs: Heart tones Established Patient Charge Established Patient Point Assignment: 120 Established Patient Point Charge: EP Level 4 (120-155) Assessment & Plan Diagnosis / Problem List (1) Encounter for supervision of high risk in third trimester, antepartum: Status: Acute Plan Kick count twice a day. Tdap next visit. Discussed labor precautions. Increase fluids. Patient has growth sono coming up in May 03 return in 2 weeks OB check Additional Plan Follow Up: 2 Weeks (TDAP and OBC)
[2025-04-24 15:12] VITALS: BP 120/76; PULSE 73; RESP 17; TEMP 36.6; O2SAT 98; BMI 33.1
== END 2025-04-24 15:51 | disposition home or self-care (01) ==
LOC: HODSOBC 15:05
PROVIDERS: Supervising Provider Advanced Practice Midwife; Visit Provider Advanced Practice Midwife
DX: O09.93 Supervision of high risk pregnancy, unspecified, third trimester (principal); Z3A.32 32 weeks gestation of pregnancy
CPT/HCPCS: 99214; G0463

== ENCOUNTER → 2025-05-03 | Outpatient (CLI) | payer MEDICAID, SELFPAY ==
--- NOTE | 2025-05-03 11:30 | XR_ITS ---
Examination: Complete OB ultrasound greater than 14 weeks Date and time of exam: May 03, 2025, 1123 hours INDICATIONS: Encounter for supervision of normal Findings: Viable intrauterine single fetus with single amniotic sac presentation cephalic spine maternal left Cardiac motion 126 bpm Placenta fundal posterior grade 1 Umbilical cord insertion 3 vessels seen Amniotic fluid index 10.7 cm Cervix 3.5 cm Right ovary 1.8 x 2.0 cm arterial flow Left ovary obscured by bowel gas. Composite estimated gestational age based on BPD, head circumference, abdominal circumference, femur length is 32 weeks 4 days Estimated weight 1766 g. Survey of intracranial anatomy, spinal anatomy, abdominal anatomy, four-chamber heart performed with no abnormalities identified. Impression: Viable intrauterine gestation in vertex presentation.
== END | disposition home or self-care (01) ==
PROVIDERS: PCP Advanced Practice Midwife; Referring Provider Advanced Practice Midwife; Visit Provider Advanced Practice Midwife
DX: O26.842 Uterine size-date discrepancy, second trimester (principal); O09.93 Supervision of high risk pregnancy, unspecified, third trimester; Z3A.32 32 weeks gestation of pregnancy
CPT/HCPCS: 76805

== ENCOUNTER 2025-05-08 14:17 | Outpatient (AMB) | payer MEDICAID, SELFPAY ==
[2025-05-08 14:29] VITALS: BP 119/74; PULSE 64; RESP 18; TEMP 36.6; O2SAT 98; BMI 33.7
--- NOTE | 2025-05-08 14:29 | OBCLNT_ITS ---
Vital Signs 05/08/25 14:29 Height 1.6 m Height Method Stated Weight 86.353 kg Weight Measurement Method Standing Scale BMI 33.7 BP 119/74 Blood Pressure Source Automatic Cuff Blood Pressure Location Right Upper Arm Position Sitting Respiration 18 Pulse 64 Pulse Source Monitor Temp 97.9 F Temp Source Temporal Artery Scan Pulse Oximetry (%) 98 Oxygen Delivery Method Room Air Allergies/Home Meds Allergies & Medications Allergies No Known Allergies Allergy (Verified 05/08/25 14:31) Medication Reconciliation vits no.126-ferrous fum 28 mg iron-folic acid 800 mcg tablet (Classic ) tab PO 01/22/25 [History Confirmed 05/08/25] Intake Visit Data Collection New Patient or Established: Established Patient (seen at [facility] within 3 years) Reason for Visit:: OBC Seen by Clinical Staff ONLY (RN/MA): No Diesel Dinkey Operator Required: No Do You Feel Safe at Home: Yes Authorities Contacted: N/A PCP or OBGYN visit in last 3 months: Yes Date of Last PCP or OBGYN visit: 04/24/25 Hx Now: Yes Are you currently on any form of Control: No Pain Present Currently: No Pain Scale Used: Neil-Guzman/Numerical Pain scale:: 0 Smoking Status Smoking Status: Never smoker Immunizations Flu Vaccine in the Last 12 Months: No Flu Vaccine Exclusion Criteria: No Exclusion Criteria Questionnaires Covid-19 Vaccine Questionnaire Has patient been vacinated for Covid-19 Have you been vacinated for Covid-19: No PHQ-9 PHQ-2 Over the last 2 weeks, how often have you been bothered by any of the following problems? 1. Little interest or pleasure in doing things: not at all 2. Feeling down, depressed, or hopeless: not at all Total score: 0 PHQ-9 3. Trouble falling or staying asleep, or sleeping too much: Not at all 4. Feeling tired or having little energy: Not at all 5. Poor appetite or overeating: Not at all 6. Feeling bad about yourself - or that you are a failure or have let yourself or your family down: Not at all 7. Trouble concentrating on things, such as reading the newspaper or watching television: Not at all 8. Moving or speaking so slowly that other people could have noticed? - Or the opposite - being so fidgety or restless that you have been moving around a lot more than usual: not at all 9. Thoughts that you would be better off or of hurting yourself in some way: Not at all Total score: 0 If you checked off any problems, how difficult have these problems made it for you to do your work, take care of things at home, or get along with other people?: not difficult at all Source: Developed by Drs. Alexander Vargas, Keyla Dyer, Vernon Solis and colleagues, with an educational gordy from [employer]. Depression screen completed yes Social History Living Situation History Marital Status: Lives With: Family Housing: House Tobacco History Smoking Status: Never smoker Second Hand Smoke Exposure: No Alcohol History Alcohol Intake: Never Domestic Abuse History Do You Feel Safe at Home: Yes Care OB Visit Log OB Flowsheet Initial Weight: Not Recorded Date -?-?-?-?-?-?-?-?-?-?-?-?- EGA Weight BP Alb Glu CTX Pres Fundal ht FHR Mov Dilation Station Effacement Hx Notes Visit Note 10/30/24 -?-?-?-?-?-?-?-?-?-?-?-?- 6w 6d 68.606 kg 119/64 absent 6.0 19-year-old 2 para 0 for OBI carol monreal. She has sure dates. Last. September 12, 2024. This gives EDC of 06/19/2025. Patient has no complaints today. Denies SAB complaints. Order OB panel today. And I ordered an ultrasound at [facility] for viability and dates. And patient to continue vitamins. Return in 4 weeks OB check 11/27/24 -?-?-?-?-?-?-?-?-?-?-?-?- 10w 6d 69.626 kg 123/74 absent unknown 11 170 active no c/o SAB symptom. no compliants of [address] [place] [address] discomfort. compliant with PNV. NIPT and carrier screen today, schedule MFM anatomy scan schedule mfm scan, NIPT and carrier screen, RTC 4 week.continue PNV 12/25/24 -?-?-?-?-?-?-?-?-?-?-?-?- 14w 6d 73.595 kg 115/70 absent unknown 15 156 active NO ob complaints. mfm today, f/u 01/06 for poor dates, no complaints today afp/NIPT draw on 01/04, f/u mfm 01/06, poor dates, discuss SAB precaution, hydrate, rtc 4 week 01/22/25 -?-?-?-?-?-?-?-?-?-?-?-?- 18w 6d 75.863 kg 122/75 absent unknown 18 156 active no ob complaints, + FM, no uc,vb,ROM. mfm appt, 02/05/25 RTC 4 wk obc, discuss sab/ptl precaution, f/u with MFM 02/05/25 02/19/25 -?-?-?-?-?-?-?-?-?-?-?-?- 22w 6d 79.038 kg 127/80 absent unknown 22 156 active No OB complaints. Fetus active. Denies leaking, denies bleeding, denies contractions. Return in 4 weeks for OB check. Third trimester labs next visit. Follow-up ultrasound at 32 weeks for growth. Discussed labor precautions 03/27/25 -?-?-?-?-?-?-?-?-?-?-?-?- 28w 0d 83.915 kg 126/76 absent unknown 28 156 active No OB complaints. Fetus active. No labor complaints such as bleeding, leaking, contractions Discussed diet a nd weight gain. Avoid sugary foods. Lab slip for third trimester labs given. Schedule sono for growth. Discussed labor precautions. Return in 3 weeks OB check 04/24/25 -?-?-?-?-?-?-?-?-?-?-?-?- 32w 0d 84.822 kg 120/76 absent unknown 31 155 active Reports good movement. Denies labor complaints or OB complaints. Denies leaking, bleeding, contractions. Tdap nex t visit. Patient has an ultrasound at [facility] imaging May 03. This discussed labor precautions and kick count twice a day. Increase fluids and reviewed diet and. Return in 2 weeks OB check 05/08/25 -?-?-?-?-?-?-?-?-?-?-?--?- 34w 0d 86.353 kg 119/74 absent unknown 33 154 active Reports good movement. Denies leaking bleeding or contractions. No OB complaints Tdap today. Discussed labor precautions. Kick count. And continue prenatals and return in 2 weeks OB check and GBS REDD Calculator Estimated Delivery Date Method Current WG Current Estimate 06/19/25 LMP (Certain) 34w 0d Other Estimates 06/20/25 Ultrasound #1 33w 6d 06/19/25 Ultrasound #2 34w 0d 06/19/25 Manual 34w 0d final REDD: 06/10 Notes Visit Date: 05/08/25 Last Updated by: Amy Willard CNM 05/03: IUP 32 week. EDC 06/29/25 Visit Date: 04/24/25 Last Updated by: Amy Willard CNM 04/02: 3rd tri lab wnl Visit Date: 02/19/25 Last Updated by: Amy Willard CNM 19 yo . l1st sono 11/07/24 IUP 7w6. edc 06/20/25. OB panel: A+,abs-, rpr;;nr, rub imm, hbsag-, HIV-,HC-, gc/ct- lmp 09/12/24. EDC: 06/19/25 Visit Date: 01/22/25 Last Updated by: Amy Willard CNM 01/22/25: NIPT:neg/female, carrier screen negative, AFP- Visit Date: 11/27/24 Last Updated by: Amy Willard CNM 19 yo . LMP 09/12/24. EDC 06/19/25, sono 11/07: 7w:: 06/21/25. A+,abs- ,rpr;;nr, rub imm, hbssag-,hiv-,GC/CT-, HC-, Office Procedures OBC Clinic LOC & Office Proc's Nursing/Assessment Patient Status: Established Patient OB Clinic Nursing Assessment: Medication Reconciliation, Update PMH in EMR and Vital Signs OB Clinic Coordination of Care: Complex Care and Chronic Disease 1-5, Education Complex Pt/Fam, Consent,records obtained, informed consent and Staff clarify orders Special Needs: Heart tones Established Patient Charge Established Patient Point Assignment: 120 Established Patient Point Charge: EP Level 4 (120-155) Injection/Vaccine Admin SQ Im Injection: Yes Immunizations diphth,pertus(acell),tetanus 2.5 Lf unit-8 mcg-5 Lf/0.5mL IM syringe Performing Provider: Amy Willard CNM Performing Location: [facility] Administered by: Iris Corado MA on 05/08/25 15:59 Dose Route Admin Location Dispensed Lot Number Expiration Date Pack age ND NDC Project Technician 0.5 mL IM Right Deltoid 0.5 mL [id number] 12/21/27 15354-336-35 [id number] [employer] VIS Given Date VIS Provided VIS Publication Date 05/08/25 Single Vaccine 24 Eligibility Eligibility Date Funding Source [facility] Non-[facility] Assessment & Plan Diagnosis / Problem List (1) Encounter for supervision of high risk in third trimester, antepartum: Status: Acute Plan Discussed labor precautions. Kick count twice a day. Continue prenatals. Return in 2 weeks for OB check and GBS. TDAP Additional Plan Follow Up: 2 Weeks (obc/tdap)
== END 2025-05-08 15:03 | disposition home or self-care (01) ==
LOC: HODSOBC 14:17
PROVIDERS: Supervising Provider Advanced Practice Midwife; Visit Provider Advanced Practice Midwife
DX: O09.93 Supervision of high risk pregnancy, unspecified, third trimester (principal); Z3A.34 34 weeks gestation of pregnancy; Z23 Encounter for immunization
CPT/HCPCS: 90471; 90715; 96372; 99214; G0463

== ENCOUNTER 2025-05-28 13:23 | Outpatient (AMB) | payer MEDICAID, SELFPAY ==
[2025-05-28 13:41] VITALS: BP 125/78; PULSE 71; RESP 14; TEMP 36.4; O2SAT 98; BMI 33.8
--- NOTE | 2025-05-28 13:41 | AMB.OBPNC ---
Vital Signs 05/28/25 13:41 Height 1.6 m Height Method Stated Weight 86.636 kg Weight Measurement Method Standing Scale BMI 33.8 BP 125/78 Blood Pressure Source Automatic Cuff Blood Pressure Location Left Upper Arm Position Sitting Respiration 14 Pulse 71 Pulse Source Monitor Temp 97.5 F Temp Source Oral Pulse Oximetry (%) 98 Oxygen Delivery Method Room Air Allergies/Home Meds Allergies & Medications Allergies No Known Allergies Allergy (Verified 05/28/25 13:42) Medication Reconciliation vits no.126-ferrous fum 28 mg iron-folic acid 800 mcg tablet (Classic ) tab PO 01/22/25 [History Confirmed 05/28/25] Immunizations Immunizations Flu Vaccine in the Last 12 Months: Yes Date of most recent flu vaccination: 05/28/25 Flu Vaccine Exclusion Criteria: Already Received Care OB Visit Log OB Flowsheet Initial Weight: Not Recorded Date <del>?</del> EGA Weight BP Alb Glu CTX Pres Fundal ht FHR Mov Dilation Station Effacement Hx Notes Visit Note 10/30/24 <del>?</del> 6w 6d 68.606 kg 119/64 absent 6.0 19-year-old 2 para 0 for OBI today. She has sure dates. Last. September 12, 2024. This gives EDC of 06/19/2025. Patient has no complaints today. Denies SAB complaints. Order OB panel today. And I ordered an ultrasound at [facility] for viability and dates. And patient to continue vitamins. Return in 4 weeks OB check 11/27/24 <del>?</del> 10w 6d 69.626 kg 123/74 absent unknown 11 170 active no c/o SAB symptom. no compliants of tri discomfort. compliant with PNV. NIPT and carrier screen today, schedule MFM anatomy scan schedule mfm scan, NIPT and carrier screen, RTC 4 week.continue PNV 12/25/24 <del>?</del> 14w 6d 73.595 kg 115/70 absent unknown 15 156 active NO ob complaints. mfm today, f/u 01/06 for poor dates, no complaints today afp/NIPT draw on 01/04, f/u mfm 01/06, poor dates, discuss SAB precaution, hydrate, rtc 4 week 01/22/25 <del>?</del> 18w 6d 75.863 kg 122/75 absent unknown 18 156 active no ob complaints, + FM, no uc,vb,ROM. [facility] appt, 02/05/25 RTC 4 wk obc, discuss sab/ptl precaution, f/u with [facility] 02/05/25 02/19/25 <del>?</del> 22w 6d 79.038 kg 127/80 absent unknown 22 156 active No OB complaints. Fetus active. Denies leaking, denies bleeding, denies contractions. Return in 4 weeks for OB check. Third trimester labs next visit. Follow-up ultrasound at 32 weeks for growth. Discussed labor precautions 03/27/25 <del>?</del> 28w 0d 83.915 kg 126/76 absent unknown 28 156 active No OB complaints. Fetus active. No labor complaints such as bleeding, leaking, contractions Discussed diet and weight gain. Avoid sugary foods. Lab slip for third trimester labs given. Schedule sono for growth. Discussed labor precautions. Return in 3 weeks OB check 04/24/25 <del>?</del> 32w 0d 84.822 kg 120/76 absent unknown 31 155 active Reports good movement. Denies labor complaints or OB complaints. Denies leaking, bleeding, contractions. Tdap next visit. Patient has an ultrasound at [facility] May 03. This discussed labor precautions and kick count twice a day. Increase fluids and reviewed diet and. Return in 2 weeks OB check 05/08/25 <del>?</del> 34w 0d 86.353 kg 119/74 absent unknown 33 154 active Reports good movement. Denies leaking bleeding or contractions. No OB complaints Tdap today. Discussed labor precautions. Kick count. And continue prenatals and return in 2 weeks OB check and GBS 05/17/25 <del>?</del> 35w 2d 86.353 kg 116/71 occasional cephalic 35 145 active Reports good movement. Occasional contraction. Increased pressure. Denies leaking or bleeding GBS today. Reviewed kick count. Reviewed danger signs symptoms ER precautions discussed signs symptoms of labor and anesthesia. Return week OB check 05/28/25 <del>?</del> 36w 6d 86.636 kg 125/78 occasional cephalic 35 146 active Reports good movement. Denies leaking, bleeding, contractions Discussed negative GBS. Kick count twice a day reviewed. Discussed labor precautions with patient danger signs symptoms return a week OB check REDD Calculator Estimated Delivery Date Method Current WG Current Estimate 06/19/25 LMP (Certain) 36w 6d Other Estimates 06/20/25 Ultrasound #1 36w 5d 06/19/25 Ultrasound #2 36w 6d 06/19/25 Manual 36w 6d final REDD: 06/19/25 Notes Visit Date: 05/28/25 Last Updated by: Amy Willard CNM GBS- Visit Date: 05/08/25 Last Updated by: Amy Willard CNM 05/03: IUP 32 week. EDC 06/29/25 Visit Date: 04/24/25 Last Updated by: Amy Willard CNM 04/02: 3rd tri lab wnl Visit Date: 02/19/25 Last Updated by: Amy Willard CNM 19 yo . l1st sono 11/07/24 IUP 7w6. edc 06/20/25. OB panel: A+,abs-, rpr;;nr, rub imm, hbsag-, HIV-,HC-, gc/ct- lmp 09/12/24. EDC: 06/19/25 Visit Date: 01/22/25 Last Updated by: Amy Willard CNM 01/22/25: NIPT:neg/female, carrier screen negative, AFP- Visit Date: 11/27/24 Last Updated by: Amy Willard CNM 19 yo . LMP 09/12/24. EDC 06/19/25, sono 11/07: 7w:: 06/21/25. A+,abs-,rpr;;nr, rub imm, hbssag-,hiv-,GC/CT-, HC-, Office Procedures OBC Clinic LOC & Office Proc's Nursing/Assessment Patient Status: Established Patient OB Clinic Nursing Assessment: Medication Reconciliation, Update PMH in EMR and Vital Signs OB Clinic Coordination of Care: Complex Care and Chronic Disease 1-5, Consent,records obtained, informed consent, Education Simp Pt/Fam, 1 Ins Authorization, Lab and Imaging orders, Results/Orders obtained and Staff clarify orders Special Needs: Heart tones Established Patient Charge Established Patient Point Assignment: 150 Established Patient Point Charge: EP Level 4 (120-155) Injection/Vaccine Admin SQ Im Injection: Yes Immunizations flu vac ts (6mos up)-PF 45 mcg(15mcg x3)/0.5 mL IM syringe Performing Provider: Amy Willard CNM Performing Location: [facility] Administered by: Matilde Collazo MA on 05/28/25 15:34 Dose Route Admin Location Dispensed Lot Number Expiration Date Package NDC NDC Conversion Man 0.5 mL IM Left Deltoid 0.5 mL [id number] 01/07/26 00296-073-88 [id number] [employer] VIS Given Date VIS Provided VIS Publication Date 05/28/25 Single Vaccine 24 Eligibility Eligibility Date Funding Source Public Non-[facility] Assessment & Plan Diagnosis / Problem List (1) Encounter for supervision of high risk in third trimester, antepartum: Status: Acute Plan Discussed labor precautions. Kick count twice a day. Discussed GBS results. Increase fluids. Discussed danger signs symptoms and ER parameters and return week Additional Plan Follow Up: 1 Week (obc)
== END 2025-05-28 14:01 | disposition home or self-care (01) ==
LOC: HODSOBC 13:23
PROVIDERS: Supervising Provider Advanced Practice Midwife; Visit Provider Advanced Practice Midwife
DX: O09.93 Supervision of high risk pregnancy, unspecified, third trimester (principal); Z3A.36 36 weeks gestation of pregnancy; Z23 Encounter for immunization
CPT/HCPCS: 90471; 90686; 96372; 99214; G0463; J9060

== ENCOUNTER 2025-06-04 13:20 | Outpatient (AMB) | payer MEDICAID, SELFPAY ==
[2025-06-04 13:33] VITALS: BP 120/76; PULSE 71; RESP 18; TEMP 37.1; O2SAT 98; BMI 33.8
--- NOTE | 2025-06-04 13:33 | OBCLNT_ITS ---
Vital Signs 06/04/25 13:33 Height 1.6 m Height Method Stated Weight 86.693 kg Weight Measurement Method Standing Scale BMI 33.8 BP 120/76 Blood Pressure Source Automatic Cuff Blood Pressure Location Right Upper Arm Position Sitting Respiration 18 Pulse 71 Pulse Source Monitor Temp 98.7 F Temp Source Temporal Artery Scan Pulse Oximetry (%) 98 Oxygen Delivery Method Room Air Allergies/Home Meds Allergies & Medications Allergies No Known Allergies Allergy (Verified 06/04/25 13:36) Medication Reconciliation vits no.126-ferrous fum 28 mg iron-folic acid 800 mcg tablet (Classic ) tab PO 01/22/25 [History Confirmed 06/04/25] Immunizations Immunizations Flu Vaccine in the Last 12 Months: Yes Date of most recent flu vaccination: 05/28/25 Flu Vaccine Exclusion Criteria: Already Received Care OB Visit Log OB Flowsheet Initial Weight: Not Recorded Date -?-?-?-?-?-?-?-?-?-?-?-?- EGA Weight BP Alb Glu CTX Pres Fundal ht FHR Mov Dilation Station Efface ment Hx Notes Visit Note 10/30/24 -?-?-?-?-?-?-?-?-?-?-?-?- 6w 6d 68.606 kg 119/64 absent 6.0 19-year-old 2 para 0 for OBI today. She has sure dates. Last. September 12, 2024. This gives EDC of 06/19/2025. Patient has no complaints today. Denies SAB complaints. Order OB panel today. And I ordered an ultrasound at [facility] for viability and dates. And patient to continue vitamins. Return in 4 weeks OB check 11/27/24 -?-?-?-?-?-?-?-?-?-?--?-?- 10w 6d 69.626 kg 123/74 absent unknown 11 170 active no c/o SAB symptom. no compliants of [facility] tri discomfort. compliant with PNV. NIPT and carrier screen today, schedule MFM anatomy scan schedule mfm scan, NIPT and carrier screen, RTC 4 week.continue PNV 12/25/24 -?-?-?-?-?-?-?-?-?-?-?-?- 14w 6d 73.595 kg 115/70 absent unknown 15 156 active NO ob complaints. mfm today, f/u 01/06 for poor dates, no complaints today afp/NIPT draw on 01/04, f/u mfm 01/06, poor dates, discuss SAB precaution, hydrate, rtc 4 week 01/22/25 -?-?-?-?-?-?-?-?-?-?-?-?- 18w 6d 75.863 kg 122/75 absent unknown 18 156 active no ob complaints, + FM, no uc,vb,ROM. mfm appt, 02/05/25 RTC 4 wk obc, discuss sab/ptl precaution, f/u with MFM 02/05/25 02/19/25 -?-?-?-?-?-?-?-?-?-?-?-?- 22w 6d 79.038 kg 127/80 absent unknown 22 156 active No OB complaints. Fetus active. Denies leaking, denies bleeding, denies contractions. Return in 4 weeks for OB check. Third trimester labs next visit. Follow-up ultrasound at 32 weeks for growth. Discussed labor precautions 03/27/25 -?-?-?-?-?-?-?-?-?-?-?-?- 28w 0d 83.915 kg 126/76 absent unknown 28 156 active No OB complaints. Fetus active. No labor complaints such as bleeding, leaking, contractions Discussed diet a nd weight gain. Avoid sugary foods. Lab slip for third trimester labs given. Schedule sono for growth. Discussed labor precautions. Return in 3 weeks OB check 04/24/25 -?-?-?-?-?-?-?-?-?-?-?-?- 32w 0d 84.822 kg 120/76 absent unknown 31 155 active Reports good movement. Denies labor complaints or OB complaints. Denies leaking, bleeding, contractions. Tdap nex t visit. Patient has an ultrasound at [facility] May 03. This discussed labor precautions and kick count twice a day. Increase fluids and reviewed diet and. Return in 2 weeks OB check 05/08/25 -?-?-?-?-?-?-?-?-?-?-?-?- 34w 0d 86.353 kg 119/74 absent unknown 33 154 active Reports good movement. Denies leaking bleeding or contractions. No OB complaints Tdap today. Discussed labor precautions. Kick count. And continue prenatals and return in 2 weeks OB check and GBS 05/17/25 -?-?-?-?-?-?-?-?-?-?-?-?- 35w 2d 86.353 kg 116/71 occasional cephalic 35 145 active Reports good movement. Occasional contraction. Increased pressure. Denies leaking or bleeding GBS today. Revi ewed kick count. Reviewed danger signs symptoms ER precautions discussed signs symptoms of labor and anesthesia. Return week OB check 05/28/25 -?-?-?-?-?-?-?-?-?-?-?-?- 36w 6d 86.636 kg 125/78 occasional cephalic 35 146 active Reports good movement. Denies leaking, bleeding, contractions Discussed negative GBS. Kick count twice a day reviewed. Discussed labor precautions with patient danger signs symptoms return a week OB check 06/04/25 -?-?-?-?-?-?-?-?-?-?-?-?- 37w 6d 86.693 kg 120/76 occasional cephalic 36 145 active Reports good movement. Denies contractions. Denies leaking or bleeding. Discussed labor precautions. Kick count twice a day. Continue prenatals. Increase fluids. Return in a week OB check REDD Calculator Estimated Delivery Date Method Current WG Current Estimate 06/19/25 LMP (Certain) 37w 6d Other Estimates 06/20/25 Ultrasound #1 37w 5d 06/19/25 Ultrasound #2 37w 6d 06/19/25 Manual 37w 6d final REDD: 06/10 Notes Visit Date: 05/28/25 Last Updated by: Amy Willard CNM GBS- Visit Date: 05/08/25 Last Updated by: Amy Willard CNM 05/03: IUP 32 week. EDC 06/29/25 Visit Date: 04/24/25 Last Updated by: Amy Willard CNM 04/02: 3rd tri lab wnl Visit Date: 02/19/25 Last Updated by: Amy Taqueria Billings, CNM 19 yo . l1st sono 11/07/24 IUP 7w6. edc 06/20/25. OB panel: A+,abs-, rpr;;nr, rub imm, hbsag-, HIV-,HC-, gc/ct- lmp 09/12/24. EDC: 06/19/25 Visit Date: 01/22/25 Last Updated by: Amy Willard CNM 01/22/25: NIPT:neg/female, carrier screen negative, AFP- Visit Date: 11/27/24 Last Updated by: Amy Willard CNM 19 yo . LMP 09/12/24. EDC 06/19/25, sono 11/07: 7w:: 06/21/25. A+,abs- ,rpr;;nr, rub imm, hbssag-,hiv-,GC/CT-, HC-, Office Procedures OBC Clinic LOC & Office Proc's Nursing/Assessment Patient Status: Established Patient OB Clinic Nursing Assessment: Medication Reconciliation, Update PMH in EMR and Vital Signs OB Clinic Coordination of Care: Complex Care and Chronic Disease 1-5, Education Complex Pt/Fam, Consent,records obtained, informed consent, Lab and Imaging orders, Results/Orders obtained and Staff clarify orders Special Needs: Heart tones Established Patient Charge Established Patient Point Assignment: 140 Established Patient Point Charge: EP Level 4 (120-155) Assessment & Plan Diagnosis / Problem List (1) Encounter for supervision of high risk in third trimester, antep artum: Status: Acute Plan Kick count twice a day. Discussed labor precautions and signs and symptoms of ER precautions. Increase fluids. Take prenatals and return in week OB check Additional Plan Follow Up: 1 Week (obc)
== END 2025-06-04 13:42 | disposition home or self-care (01) ==
LOC: HODSOBC 13:20
PROVIDERS: Supervising Provider Advanced Practice Midwife; Visit Provider Advanced Practice Midwife
DX: O09.93 Supervision of high risk pregnancy, unspecified, third trimester (principal); Z3A.37 37 weeks gestation of pregnancy
CPT/HCPCS: 99214; G0463

== ENCOUNTER 2025-06-11 14:29 | Observation (INO) | payer MEDICAID, SELFPAY ==
[2025-06-11 14:36] VITALS: BMI 34.3
[2025-06-11 14:43] VITALS: BP 132/72; PULSE 67; PULSE 68; RESP 18; RESP 99; TEMP 36.7; O2SAT 99
[2025-06-11 14:48] VITALS: PULSE 67; O2SAT 98
[2025-06-11 14:51] VITALS: BP 134/74; PULSE 67
[2025-06-11 14:53] VITALS: PULSE 80; O2SAT 98
[2025-06-11 14:58] VITALS: PULSE 72; O2SAT 98
== END 2025-06-11 15:13 | disposition home or self-care (01) ==
PROVIDERS: Admitting Provider Advanced Practice Midwife; Visit Provider Advanced Practice Midwife
DX: O47.1 False labor at or after 37 completed weeks of gestation (principal); O26.893 Other specified pregnancy related conditions, third trimester; M54.9 Dorsalgia, unspecified; Z3A.38 38 weeks gestation of pregnancy
CPT/HCPCS: 59025; 59899

== ENCOUNTER 2025-06-13 10:17 | Outpatient (AMB) | payer MEDICAID, SELFPAY ==
[2025-06-13 10:26] VITALS: BP 130/82; PULSE 90; RESP 18; TEMP 36.2; O2SAT 98
--- NOTE | 2025-06-13 10:26 | OBCLNT_ITS ---
Vital Signs 06/13/25 10:26 Weight 87.09 kg Weight Measurement Method Standing Scale BP 130/82 Blood Pressure Source Automatic Cuff Blood Pressure Location Left Upper Arm Position Sitting Respiration 18 Pulse 90 Pulse Source Monitor Temp 97.2 F Temp Source Oral Pulse Oximetry (%) 98 Oxygen Delivery Method Room Air Allergies/Home Meds Allergies & Medications Allergies No Known Allergies Allergy (Verified 06/13/25 10:27) Medication Reconciliation vits no.126-ferrous fum 28 mg iron-folic acid 800 mcg tablet (Classic ) tab PO 01/22/25 [History Confirmed 06/13/25] Immunizations Immunizations Flu Vaccine in the Last 12 Months: No Flu Vaccine Exclusion Criteria: No Exclusion Criteria Care OB Visit Log OB Flowsheet Initial Weight: Not Recorded Date -?-?-?-?-?-?-?-?-?-?-?-?- EGA Weight BP Alb Glu CTX Pres Fundal ht FHR Mov Dilation Station Effacement Hx Notes Visit Note 10/30/24 -?-?-?-?-?-?-?-?-?-?-?-?- 6w 6d 68.606 kg 119/64 absent 6.0 19-year-old 2 para 0 for OBI today. She has sure dates. Last. September 12, 2024. This gives EDC of 06/19/2025. Patient has no complaints today. Denies SAB complaints. Order OB panel today. And I ordered an ultrasound at [facility] for viability and dates. And patient to continue vitamins. Return in 4 weeks OB check 11/27/24 -?-?-?-?-?-?-?-?-?-?-?-?- 10w 6d 69.626 kg 123/74 absent unknown 11 170 active no c/o SAB symptom. no compliants of discomfort. compliant with PNV. NIPT and carrier screen t jocelin, schedule MFM anatomy scan schedule mfm scan, NIPT and carrier screen, RTC 4 week.continue PNV 12/25/24 -?-?-?-?-?-?-?-?-?-?-?-?- 14w 6d 73.595 kg 115/70 absent unknown 15 156 active NO ob complaints. mfm today, f/u 01/06 for poor dates, no complaints today afp/NIPT draw on 01/04, f/u mfm 01/06, poor dates, discuss SAB precaution, hydrate, rtc 4 week 01/22/25 -?-?-?-?-?-?-?-?-?-?-?-?- 18w 6d 75.863 kg 122/75 absent unknown 18 156 active no ob complaints, + FM, no uc,vb,ROM. [facility] appt, 02/05/25 RTC 4 wk obc, discuss sab/ptl precaution, f/u with M 02/05/25 02/19/25 -?-?-?-?-?-?-?-?-?-?-?-?- 22w 6d 79.038 kg 127/80 absent unknown 22 156 active No OB complaints. Fetus active. Denies leaking, denies bleeding, denies contractions. Return in 4 weeks for OB check. Third trimester labs next visit. Follow-up ultrasound at 32 weeks for growth. Discussed labor precautions 03/27/25 -?-?-?-?-?-?-?-?-?-?-?-?- 28w 0d 83.915 kg 126/76 absent unknown 28 156 active No OB complaints. Fetus active. No labor complaints such as bleeding, leaking, contractions Discussed diet a nd weight gain. Avoid sugary foods. Lab slip for third trimester labs given. Schedule sono for growth. Discussed labor precautions. Return in 3 weeks OB check 04/24/25 -?-?-?-?-?-?-?-?-?-?-?-?- 32w 0d 84.822 kg 120/76 absent unknown 31 155 active Reports good movement. Denies labor complaints or OB complaints. Denies leaking, bleeding, contractions. Tdap nex t visit. Patient has an ultrasound at [facility] May 03. This discussed labor precautions and kick count twice a day. Increase fluids and reviewed diet and. Return in 2 weeks OB check 05/08/25 -?-?-?-?-?-?-?-?-?-?-?-?- 34w 0d 86.353 kg 119/74 absent unknown 33 154 active Reports good movement. Denies leaking bleeding or contractions. No OB complaints Tdap today. Discussed labor precautions. Kick count. And continue prenatals and return in 2 weeks OB check and GBS 05/17/25 -?-?-?-?-?--?-?-?-?-?-?-?- 35w 2d 86.353 kg 116/71 occasional cephalic 35 145 active Reports good movement. Occasional contraction. Increased pressure. Denies leaking or bleeding GBS today. Revi ewed kick count. Reviewed danger signs symptoms ER precautions discussed signs symptoms of labor and anesthesia. Return week OB check 05/28/25 -?-?-?-?-?-?-?-?-?-?-?-?- 36w 6d 86.636 kg 125/78 occasional cephalic 35 146 active Reports good movement. Denies leaking, bleeding, contractions Discussed negative GBS. Kick count twice a day reviewed. Discussed labor precautions with patient danger signs symptoms return a week OB check 06/04/25 -?-?-?-?-?-?-?-?-?-?-?-?- 37w 6d 86.693 kg 120/76 occasional cephalic 36 145 active Reports good movement. Denies contractions. Denies leaking or bleeding. Discussed labor precautions. Kick count twice a day. Continue prenatals. Increase fluids. Return in a week OB check 06/13/25 -?-?-?-?-?-?-?-?-?-?-?-?- 39w 1d 87.09 kg 130/82 occasional cephalic 38 145 active Reports good movement. Denies leaking. Complains of increased pressure and contractions. Discussed labor precautions. Kick count twice a day. Reviewed danger signs symptoms and ER precautions return a week OB check REDD Calculator Estimated Delivery Date Method Current WG Current Estimate 06/19/25 LMP (Certain) 39w 1d Other Estimates 06/20/25 Ultrasound #1 39w 0d 06/19/25 Ultrasound #2 39w 1d 06/19/25 Manual 39w 1d final REDD: 06/10 Notes Visit Date: 05/28/25 Last Updated by: Amy Willard CNM GBS- Visit Date: 05/08/25 Last Updated by: Amy Willard CNM 05/03: IUP 32 week. EDC 06/29/25 Visit Date: 04/24/25 Last Updated by: Amy Willard CNM 04/02: 3rd tri lab wnl Visit Date: 02/19/25 Last Updated by: Amy Willard CNM 19 yo . l1st sono 11/07/24 IUP 7w6. edc 06/20/25. OB panel: A+,abs-, rpr;;nr, rub imm, hbsag-, HIV-,HC-, gc/ct- lmp 09/12/24. EDC: 06/19/25 Visit Date: 01/22/25 Last Updated by: Amy Willard CNM 01/22/25: NIPT:neg/female, carrier screen negative, AFP- Visit Date: 11/27/24 Last Updated by: Amy Willard CNM 19 yo . LMP 09/12/24. EDC 06/19/25, sono 11/07: 7w:: 06/21/25. A+,abs- ,rpr;;nr, rub imm, hbssag-,hiv-,GC/CT-, HC-, Office Procedures OBC Clinic LOC & Office Proc's Nursing/Assessment Patient Status: Established Patient OB Clinic Nursing Assessment: Medication Reconciliation, Update PMH in EMR and Vital Signs OB Clinic Coordination of Care: Consent,records obtained, informed consent, Education Simp Pt/Fam, Lab and Imaging orders, Results/Orders obtained and Staff clarify orders Special Needs: Heart tones Established Patient Charge Established Patient Point Assignment: 110 Established Patient Point Charge: EP Level 3 (80-115) Assessment & Plan Diagnosis / Problem List (1) Encounter for supervision of high risk in third trimester, antepartum: Status: Acute Plan Discussed labor precautions. Kick count twice a day. Discussed ER precautions. Increase fluids. Can return in a week OB check Additional Plan Follow Up: 1 Week (obc)
== END 2025-06-13 10:44 | disposition home or self-care (01) ==
LOC: HODSOBC 10:17
PROVIDERS: Supervising Provider Advanced Practice Midwife; Visit Provider Advanced Practice Midwife
DX: O09.93 Supervision of high risk pregnancy, unspecified, third trimester (principal); Z3A.39 39 weeks gestation of pregnancy
CPT/HCPCS: 99213; G0463

== ENCOUNTER 2025-06-19 12:55 | Outpatient (AMB) | payer MEDICAID, SELFPAY ==
[2025-06-19 13:05] VITALS: BP 128/86; PULSE 86; RESP 16; TEMP 36.2; O2SAT 98; BMI 33.8
--- NOTE | 2025-06-19 13:05 | AMB.OBPNC ---
Vital Signs 06/19/25 13:05 Height 1.6 m Height Method Stated Weight 86.636 kg Weight Measurement Method Standing Scale BMI 33.8 BP 128/86 H Blood Pressure Source Automatic Cuff Blood Pressure Location Left Upper Arm Position Sitting Respiration 16 Pulse 86 Pulse Source Monitor Temp 97.1 F Temp Source Oral Pulse Oximetry (%) 98 Oxygen Delivery Method Room Air Allergies/Home Meds Allergies & Medications Allergies No Known Allergies Allergy (Verified 06/19/25 13:06) Medication Reconciliation vits no.126-ferrous fum 28 mg iron-folic acid 800 mcg tablet (Classic ) tab PO 01/22/25 [History Confirmed 06/19/25] Immunizations Immunizations Flu Vaccine in the Last 12 Months: Yes Flu Vaccine Exclusion Criteria: Already Received Care OB Visit Log OB Flowsheet Initial Weight: Not Recorded Date <del>?</del> EGA Weight BP Alb Glu CTX Pres Fundal ht FHR Mov Dilation Station Effacement Hx Notes Visit Note 10/30/24 <del>?</del> 6w 6d 68.606 kg 119/64 absent 6.0 19-year-old 2 para 0 for OBI today. She has sure dates. Last. September 12, 2024. This gives EDC of 06/19/2025. Patient has no complaints today. Denies SAB complaints. Order OB panel today. And I ordered an ultrasound at [facility] for viability and dates. And patient to continue vitamins. Return in 4 weeks OB check 11/27/24 <del>?</del> 10w 6d 69.626 kg 123/74 absent unknown 11 170 active no c/o SAB symptom. no compliants of tri discomfort. compliant with PNV. NIPT and carrier screen today, schedule MFM anatomy scan schedule mfm scan, NIPT and carrier screen, RTC 4 week.continue PNV 12/25/24 <del>?</del> 14w 6d 73.595 kg 115/70 absent unknown 15 156 active NO ob complaints. mfm today, f/u 01/06 for poor dates, no complaints today afp/NIPT draw on 01/04, f/u mfm 01/06, poor dates, discuss SAB precaution, hydrate, rtc 4 week 01/22/25 <del>?</del> 18w 6d 75.863 kg 122/75 absent unknown 18 156 active no ob complaints, + FM, no uc,vb,ROM. [facility] appt, 02/05/25 RTC 4 wk obc, discuss sab/ptl precaution, f/u with M 02/05/25 02/19/25 <del>?</del> 22w 6d 79.038 kg 127/80 absent unknown 22 156 active No OB complaints. Fetus active. Denies leaking, denies bleeding, denies contractions. Return in 4 weeks for OB check. Third trimester labs next visit. Follow-up ultrasound at 32 weeks for growth. Discussed labor precautions 03/27/25 <del>?</del> 28w 0d 83.915 kg 126/76 absent unknown 28 156 active No OB complaints. Fetus active. No labor complaints such as bleeding, leaking, contractions Discussed diet and weight gain. Avoid sugary foods. Lab slip for third trimester labs given. Schedule sono for growth. Discussed labor precautions. Return in 3 weeks OB check 04/24/25 <del>?</del> 32w 0d 84.822 kg 120/76 absent unknown 31 155 active Reports good movement. Denies labor complaints or OB complaints. Denies leaking, bleeding, contractions. Tdap next visit. Patient has an ultrasound at [facility] May 03. This discussed labor precautions and kick count twice a day. Increase fluids and reviewed diet and. Return in 2 weeks OB check 05/08/25 <del>?</del> 34w 0d 86.353 kg 119/74 absent unknown 33 154 active Reports good movement. Denies leaking bleeding or contractions. No OB complaints Tdap today. Discussed labor precautions. Kick count. And continue prenatals and return in 2 weeks OB check and GBS 05/17/25 <del>?</del> 35w 2d 86.353 kg 116/71 occasional cephalic 35 145 active Reports good movement. Occasional contraction. Increased pressure. Denies leaking or bleeding GBS today. Reviewed kick count. Reviewed danger signs symptoms ER precautions discussed signs symptoms of labor and anesthesia. Return week OB check 05/28/25 <del>?</del> 36w 6d 86.636 kg 125/78 occasional cephalic 35 146 active Reports good movement. Denies leaking, bleeding, contractions Discussed negative GBS. Kick count twice a day reviewed. Discussed labor precautions with patient danger signs symptoms return a week OB check 06/04/25 <del>?</del> 37w 6d 86.693 kg 120/76 occasional cephalic 36 145 active Reports good movement. Denies contractions. Denies leaking or bleeding. Discussed labor precautions. Kick count twice a day. Continue prenatals. Increase fluids. Return in a week OB check 06/13/25 <del>?</del> 39w 1d 87.09 kg 130/82 occasional cephalic 38 145 active Reports good movement. Denies leaking. Complains of increased pressure and contractions. Discussed labor precautions. Kick count twice a day. Reviewed danger signs symptoms and ER precautions return a week OB check 06/19/25 <del>?</del> 40w 0d 86.636 kg 128/86 occasional cephalic 39 135 active reports good movement, increased pressure, no leaking or bleeding schedule IOL 06/21/25. review IOL, labor precaution, fkc bid. to [facility] for NST and sono REDD Calculator Estimated Delivery Date Method Current WG Current Estimate 06/19/25 LMP (Certain) 40w 0d Other Estimates 06/20/25 Ultrasound #1 39w 6d 06/19/25 Ultrasound #2 40w 0d 06/19/25 Manual 40w 0d final REDD: 06/19/25 Notes Visit Date: 05/28/25 Last Updated by: Amy Willard CNM GBS- Visit Date: 05/08/25 Last Updated by: Amy Willard CNM 05/03: IUP 32 week. EDC 06/29/25 Visit Date: 04/24/25 Last Updated by: Amy Willard CNM 04/02: 3rd tri lab wnl Visit Date: 02/19/25 Last Updated by: Amy Willard CNM 19 yo . l1st sono 11/07/24 IUP 7w6. edc 06/20/25. OB panel: A+,abs-, rpr;;nr, rub imm, hbsag-, HIV-,HC-, gc/ct- lmp 09/12/24. EDC: 06/19/25 Visit Date: 01/22/25 Last Updated by: Amy Willard CNM 01/22/25: NIPT:neg/female, carrier screen negative, AFP- Visit Date: 11/27/24 Last Updated by: Amy Willard CNM 19 yo . LMP 09/12/24. EDC 06/19/25, sono 11/07: 7w:: 06/21/25. A+,abs-,rpr;;nr, rub imm, hbssag-,hiv-,GC/CT-, HC-, Office Procedures OBC Clinic LOC & Office Proc's Nursing/Assessment Patient Status: Established Patient OB Clinic Nursing Assessment: Medication Reconciliation, Update PMH in EMR and Vital Signs OB Clinic Coordination of Care: Complex Care and Chronic Disease 1-5, Consent,records obtained, informed consent, Education Simp Pt/Fam, 1 Ins Authorization, Lab and Imaging orders, Results/Orders obtained and Staff clarify orders Special Needs: Heart tones Miscellaneous Interventions: Pelvic no cultures Established Patient Charge Established Patient Point Assignment: 160 Established Patient Point Charge: EP Level 5 (160-above) Assessment & Plan Diagnosis / Problem List (1) Encounter for supervision of high risk in third trimester, antepartum: Status: Acute Plan Discussed labor precautions. Kick count twice a day. Schedule induction for June 21. Patient to [facility] for NST BPP and complete OB. Return in a week if undelivered Additional Plan Follow Up: 1 Week (obc)
== END 2025-06-19 13:26 | disposition home or self-care (01) ==
LOC: HODSOBC 12:55
PROVIDERS: Supervising Provider Advanced Practice Midwife; Visit Provider Advanced Practice Midwife
DX: O09.93 Supervision of high risk pregnancy, unspecified, third trimester (principal); Z3A.40 40 weeks gestation of pregnancy
CPT/HCPCS: 99215; G0463

== ENCOUNTER 2025-06-19 19:03 | Inpatient (IN) | payer MEDICAID, SELFPAY ==
[2025-06-19] VITALS (25 sets, daily range): BP systolic 109–136; BP diastolic 55–91; PULSE 63–91; RESP 17–99; TEMP 36.6; O2SAT 90–100; BMI 33.1; BMI 32.9
--- NOTE | 2025-06-19 13:54 | XR_ITS ---
Examination: Biophysical profile, ultrasound Date and time of exam: 06/19/2025 at 2:09 p.m. INDICATION: 1. Patient is beyond normal due date for Technique: Multiple transabdominal sonographic images of the pelvis abdomen obtained. Attention is directed to the breathing movement, gross body movement, amniotic fluid volume and tone. Findings: The amniotic fluid volume index is 14.9 cm which is normal, heart rate is 148 bpm. Total biophysical profile is 8 of 8. breathing movement is 2. Gross body movement is 2. tone is 2. Qualitative amniotic fluid volume is 2 Impression: Biophysical profile is 8 of 8 which is normal please see above for further detail
--- NOTE | 2025-06-19 13:54 | XR_ITS ---
Examination: Complete OB ultrasound greater than 14 weeks Date and time of exam: 04/21/2025 at 3:14 p.m. INDICATION: Post due date Findings: Viable intrauterine single fetus with single amniotic sac The fetus is in cephalic presentation cardiac rate is 164 bpm which is normal. Four-chamber heart looks perfectly normal. The placenta is situated along the anterior wall of the uterus. The placenta is grade 3 with calcification along the basal plate a three-vessel umbilical cord is seen. Amniotic fluid volume is normal for this gestational age. The kidneys and bladder appear normal no abnormalities are seen involving the spine. Composite estimated gestational age based on BPD, head circumference, abdominal circumference, femur length is 38 weeks and 5 days. Estimated weight 3640 g. Survey of intracranial anatomy, spinal anatomy, abdominal anatomy, four-chamber heart performed with no abnormalities identified. Impression: 1. Single viable normal appearing intrauterine fetus in cephalic presentation 2. Estimated date of delivery 06/28/2025 3 no abnormalities are seen anywhere on this exam. Please see above for further detail.
[2025-06-19] MEDS: RINGERS LACTATED 1000 ML 1,000 ML 100 ML IV (18:32)
[2025-06-19 19:27] LABS: Basophils # (Auto) 0.0 Thou/mm3 (0.0-0.2); Basophils % (Auto) 0 % (0-2.5); Eosinophils # (Auto) 0.0 Thou/mm3 (0.0-0.5); Eosinophils % (Auto) 0 % (0-10); Hematocrit 40.7 % (36.0-46.0); Hemoglobin 13.8 g/dL (12.0-16.0); Immature Granulocytes Auto 0.02 Thou/mm3 (0.00-0.00); Lymphocytes # (Auto) 1.6 Thou/mm3 (1.0-4.8); Lymphocytes % (Auto) 16 % (10-50); Mean Corpuscular HGB Conc 33.9 g/dl (31.0-37.0); Mean Corpuscular Hemoglobin 29.7 pg (25.0-35.0); Mean Corpuscular Volume 88 fL (80-100); Monocytes # (Auto) 0.5 Thou/mm3 (0.0-0.8); Monocytes % (Auto) 5 % (0-12); Neutrophils # (Auto) 7.7 Thou/mm3 (1.8-7.7); Neutrophils % (Auto) 79 % (37-80); Nucleated Red Blood Cell # 0.00 Thou/mm3 (0.00-0.00); Nucleated Red Blood Cell % 0 /100 WBC (0); Platelet Count 203 Thou/mm3 (140-440); RDW Standard Deviation 42.0 fL (36.4-46.3); Red Blood Count 4.64 Miln/mm3 (4.00-5.20); White Blood Count 9.8 Thou/mm3 (3.6-11.0)
[2025-06-19 20:56] LABS: Syphilis Nonreactive (Nonreactive)
[2025-06-20] VITALS (152 sets, daily range): BP systolic 93–149; BP diastolic 52–87; PULSE 56–139; RESP 16–18; TEMP 36.7–37.1; O2SAT 80–100
[2025-06-20] MEDS: fentaNYL CIT INJ 50 mCg/ML AMP 2ML 100 MCG IVP ×3 (00:37→04:17)
--- NOTE | 2025-06-20 08:01 | PD.LDHP ---
Documentation for date of: 06/20/25 OB Labor/Induct. HPI History of Present Illness Chief complaint: induction : 2 Para: 0 Term pregnancies: 0 pregnancies: 0 Living children: 0 History of Abortions: Spontaneous and Elective: 1 History of Vaginal deliveries: 0 History of sections: No History of : No Date of last menstrual period: 09/12/24 REDD: 06/19/25 Gestational Age (weeks): 40 Gestational Age (days): 1 Gestational age based on last menstrual period: 40 Indication for induction: post dates (BPP 6/8) History of present illness: 20-year-old 2 para 0 admit to labor and delivery for induction of labor. Patient was sent from the office for an NST BPP and complete OB because of 40 weeks gestation. On ultrasound the baby measured 3640 g for an EF. But BPP 6 out of 8. The tech took 2 off for tone. Baby was also vertex. Patient's first ultrasound was at 7 weeks and November 07. And this confirmed her LMP dates. Last. September 12, 2024. Estimated due date June 19, 2025. Patient denies social habits. Denies surgery. Denies chronic illness. She is A+, antibody screen negative, RPR nonreactive, rubella immune, hepatitis B negative, hep C negative, HIV negative, GC and Chlamydia were negative. 1 hour negative. Her NIPT and carrier screens all negative and AFP negative and GBS negative reports movement. Denies leaking or bleeding History of Present Dating criteria: LMP confirmed by 1st trimester US Adequate Care: Yes Ultrasounds: normal 1st trimester US and normal mid trimester US Obstetrical complications: none Medical complications: none Labs Labs: Positive: Rubella Titre, Negative: RPR, Hepatitis B, HIV, Chlamydia, Gonorrhea and Group Beta Strep and Unknown: Herpes Type 1, Herpes Type 2 and Covid-19 Past Medical History Surgical History SURGICAL: Negative Section Meds Home Medications and Allergies Home Medications ?Medication ?Instructions ?Recorded ?Confirmed ?Type vits no.126-ferrous fum tab PO 01/22/25 06/19/25 History 28 mg iron-folic acid 800 mcg tablet (Classic ) Allergies Allergy/AdvReac Type Severity Reaction Status Date / Time No Known Allergies Allergy Verified 06/19/25 13:06 OB Exam Physical Exam Vital signs: Temp Pulse Resp BP Pulse Ox O2 Del Method 98.3 F 67 18 100/55 L 98 Room Air 06/20/25 07:47 06/20/25 07:46 06/20/25 07:47 06/20/25 07:46 06/20/25 07:57 06/20/25 07:47 Narrative: Vital signs stable afebrile. Normal heart rate and rhythm. Lungs clear no wheezes. Gravid abdomen. Estimated weight 3600 g. Vaginal exam on admission was long//3. Vertex. heart rate category 1 with accelerations and moderate variability and occasional contractions Detailed Labor and Delivery Exam Dilation (cm): 1 Effacement (%): 50 Cervix position: mid station: -3 Consistency: medium Presentation: Vertex Membranes: intact Baseline heart rate: 135 monitor accelerations: 15x15 monitor decelerations: None senior living variability: Moderate (11-25) Contraction frequency (min): occ Contraction duration (sec): 40 Tachysystole: No Contraction intensity: Mild OB Results Labs 06/19/25 17:13 Labs: Short CBC 06/19/25 Range/Units 17:13 WBC 9.8 (3.6-11.0) Thou/mm3 Hgb 13.8 (12.0-16.0) g/dL Hct 40.7 (36.0-46.0) % Plt Count 203 (140-440) Thou/mm3 OB Assessment & Plan Assessment and Plan (1) Encounter for supervision of high risk in third trimester, antepartum: Status: Acute (2) Normal labor and delivery: Status: Acute Additional Plan Induction method: per misoprostol protocol (then pitocin) Plan: induction, anticipate NVD and consult MD mcgill
[2025-06-20] MEDS: RINGERS LACTATED 1000 ML 1,000 ML 100 ML IV (09:16)
[2025-06-20] MEDS: MINERAL OIL 30 ML UDC TOP (10:33)
[2025-06-20] MEDS: OXYTOCIN INJ 10 UNIT/ML VIAL IM (11:09)
[2025-06-20] MEDS: OXYTOCIN in NS 20 units 20 UNIT/1,000 ML BAG 125 UNIT IV (11:09)
[2025-06-20] MEDS: TRANEXAMIC ACID 1,000 MG IVPB 1,000 MG/100 ML BAG 200 MG IV ×2 (11:11→11:51)
[2025-06-20] MEDS: METHYLERGONOVINE INJ 0.2 MG/ML VIAL IM (11:12)
--- NOTE | 2025-06-20 11:40 | OBDSUM_ITS ---
Data ([place]) Data Hx Section: No : 2 Term: 0 : 0 Livin Abortions: Spontaneous & Theraputic: 1 Delivery Data (Murray) Labor Data Initiation of labor: Induction Induction/Augmentation Agent: Cervidil ROM date: 06/20/25 ROM time: 10:19 Amniotic membrane rupture type: Artificial Amniotic fluid description: Moderate Meconium Delivery Data EDC: 06/19/25 EDC calculated by:: LMP/early US confirmation Date of arrival to unit: 06/19/25 Time of arrival to unit: 13:46 Onset of labor date: 06/20/25 Onset of labor time: 07:20 Complete dilation date: 06/20/25 Complete dilation time: 09:51 delivery date: 06/20/25 [place] delivery time: 11:03 Gestational age (weeks): 40 Gestational age (days): 1 Placenta delivery date: 06/20/25 Placenta delivery time: 11:09 Stage 1 total time: Labor - Stage 1 Duration 2 hours and 31 minutes Delivered by: Nessa Delivery nurse: rufina Stanton nurse: Homero Marketing Analyst at delivery: No Support person(s) at delivery: FOB Delivery Method Delivery method: Normal Vaginal Delivery Presentation: Vertex position: OA Anesthesia Type Anesthesia Type: Epidural Delivery Room Medications Delivery room medications given: fentanyl x3 Delivery room medications: Methergine 0.2 mg IM, Pitocin 10 u IM, Pitocin 20 u IV, Cytotec 800 ID and other (TXA) Placenta Placenta delivery description: Spontaneous (inspected, intact) Cord blood sent to lab: Yes cord blood collection: Cord Blood Type Episiotomy Episiotomy description: None Lacerations #1: Vaginal: 1st degree (3 small laceration) Perineal repair Sutures used for repair: 3.0 Vicryl EBL Estimated blood loss (ml): 400 Umbilical Cord cord description: 3 Vessels and Nuchal Cord (x1) [place] Data ([place]ray) [place] Data order: 1 's gender: Female Identification band number: [id number] weight (gms): 2970 g Weight (pounds): 6 lbs and 8.8 ozs length: 53.34 cm 1 minute: 7 5 minutes: 9
[2025-06-20] MEDS: IBUPROFEN TAB 400 MG TABLET 800 MG PO (11:41)
[2025-06-20] MEDS: BENZO/LANO/ALOE (Dermoplast) 60 GM CAN 1 SPRAY TOP (11:42)
[2025-06-20 19:42] LABS: Basophils # (Auto) 0.0 Thou/mm3 (0.0-0.2); Basophils % (Auto) 0 % (0-2.5); Eosinophils # (Auto) 0.0 Thou/mm3 (0.0-0.5); Eosinophils % (Auto) 0 % (0-10); Hematocrit 39.4 % (36.0-46.0); Hemoglobin 13.6 g/dL (12.0-16.0); Immature Granulocytes Auto 0.05 Thou/mm3 (0.00-0.00); Lymphocytes # (Auto) 1.4 Thou/mm3 (1.0-4.8); Lymphocytes % (Auto) 9 % (10-50); Mean Corpuscular HGB Conc 34.5 g/dl (31.0-37.0); Mean Corpuscular Hemoglobin 30.1 pg (25.0-35.0); Mean Corpuscular Volume 87 fL (80-100); Monocytes # (Auto) 1.1 Thou/mm3 (0.0-0.8); Monocytes % (Auto) 7 % (0-12); Neutrophils # (Auto) 12.5 Thou/mm3 (1.8-7.7); Neutrophils % (Auto) 83 % (37-80); Nucleated Red Blood Cell # 0.00 Thou/mm3 (0.00-0.00); Nucleated Red Blood Cell % 0 /100 WBC (0); Platelet Count 178 Thou/mm3 (140-440); RDW Standard Deviation 41.2 fL (36.4-46.3); Red Blood Count 4.52 Miln/mm3 (4.00-5.20); White Blood Count 15.0 Thou/mm3 (3.6-11.0)
[2025-06-21] VITALS: BP 129/83; PULSE 57; RESP 15; TEMP 36.9; O2SAT 97
[2025-06-21 04:00] VITALS: BP 120/78; PULSE 66; RESP 17; TEMP 36.8; O2SAT 97
[2025-06-21 07:40] VITALS: BP 117/78; PULSE 66; RESP 16; TEMP 36.8; O2SAT 98
--- NOTE | 2025-06-21 08:35 | ESPR_ITS ---
Subjective Subjective Interval history: No complaints of pain. No dizziness. Bonding breast-feeding Exam Vital Signs Temp Pulse Resp BP Pulse Ox O2 Del Method 98.2 F 66 17 120/78 97 Room Air 06/21/25 04:00 06/21/25 04:00 06/21/25 04:00 06/21/25 04:00 06/21/25 04:00 06/21/25 04:00 Narrative Exam Vital signs stable afebrile. Breasts are soft. Fundus firm below the umbilicus. Perineum intact no swelling. Small lochia. Uterus well involuted. 2+ DTRs. Negative Homans' sign Objective Labs 06/20/25 19:17 Labs: Laboratory Results - last 24 hr 06/20/25 19:17 WBC 15.0 H D RBC 4.52 Hgb 13.6 Hct 39.4 MCV 87 MCH 30.1 MCHC 34.5 RDW Std Deviation 41.2 Plt Count 178 Neut % (Auto) 83 H Lymph % (Auto) 9 L [place] % (Auto) 7 Eos % (Auto) 0 Baso % (Auto) 0 Neut # (Auto) 12.5 H Lymph # (Auto) 1.4 [place] # (Auto) 1.1 H Eos # (Auto) 0.0 Baso # (Auto) 0.0 Immature Gran # (Auto) 0.05 H Absolute Nucleated RBC 0.00 Immature Gran % 0 Nucleated RBC % 0 Assessment & Plan Problem List (1) Encounter for supervision of high risk in third trimester, antepartum: Status: Acute (2) Normal labor and delivery: Status: Acute Assessment Comment Assessment comment: 24 hr pp Plan Comment Plan Comment: Discharge home with baby. Continue vitamins and iron. Tylenol ibuprofen for pain. Danger signs. Discussed ER precautions and signs symptoms of infection. We discussed comfort measures for lacerations. Return in 3 to 4 weeks with Time Spent With Patient Time: Total time spent is greater than 50% in coordination of care (as documented) at patient's floor/unit and/or counseling patient:
--- NOTE | 2025-06-21 08:37 | ESDS_ITS ---
DS: Providers Provider Date of admission: 06/19/25 19:03 Primary care physician: Physician No Primary/Family Admitting Provider: Vianney Plata MD Attending Provider on Admission: Amy Willard CNM Consults: 06/20/25 12:30 Referral Routine Comment: Attending Provider on DC: Amy Willard CNM Discharging Provider: Amy Willard CNM DS: Diagnosis Problem List Completed Was Problem List Reviewed/Reconciled?: Yes Summary/Hosp Course Brief History: 20-year-old 2 para 0 admit to labor and delivery for induction of labor. Patient was sent from the office for an NST BPP and complete OB because of 40 weeks gestation. On ultrasound the baby measured 3640 g for an EF. But BPP 6 out of 8. The tech took 2 off for tone. Baby was also vertex. Patient's first ultrasound was at 7 weeks and November 07. And this confirmed her LMP dates. Last. September 12, 2024. Estimated due date June 19, 2025. Patient denies social habits. Denies surgery. Denies chronic illness. She is A+, antibody screen negative, RPR nonreactive, rubella immune, hepatitis B negative, hep C negative, HIV negative, GC and Chlamydia were negative. 1 hour negative. Her NIPT and carrier screens all negative and AFP negative and GBS negative reports movement. Denies leaking or bleeding Peripartum Data Delivery Method: Normal Vaginal Delivery Episiotomy Description: None Laceration Description: yes (vaginal) complications: none Time Spent with Patient Time attestation: Total time spent providing and/or coordinating discharge services: Exam Vital Signs Temp Pulse Resp BP Pulse Ox O2 Del Method 98.2 F 66 17 120/78 97 Room Air 06/21/25 04:00 06/21/25 04:00 06/21/25 04:00 06/21/25 04:00 06/21/25 04:00 06/21/25 04:00 Discharge Plan Plan Patient Disposition: HOME (Self Care) Patient condition on transfer: Stable Prescriptions/Referrals Prescriptions/Med Rec: No Action Classic 28 mg iron- 800 mcg tablet PO Referrals: No Primary/Family,Physician [Primary Care Provider] Patient/Caregiver Discharge Instructions Meds to Beds: No Discharge Activity: resume usual activities Print Language: Lithuanian Activity Restrictions/Additional Instructions: Discharge home with baby. Continue vitamins and iron. Tylenol ibuprofen for pain. Discussed danger signs and symptoms and ER precautions. I discussed signs and symptoms of infection. Comfort measures for vaginal laceration. Return in 3 weeks visit Stand Alone Forms: [employer] Award Info., Patient Portal Info Letter Discharge Order Discharge Orders: Discharge (Routine); Ordered 06/21/25 Ordered By: Amy Willard Planned Discharge Date 06/21/25
[2025-06-21 11:10] VITALS: BP 124/77; PULSE 66; RESP 17; TEMP 36.8; O2SAT 98
== END 2025-06-21 13:16 | disposition home or self-care (01) | DRG 560 ==
LOC: S4S1 19:03 → S4SX 19:06 → S4NX 06-20 14:43
PROVIDERS: Admitting Provider Obstetrics & Gynecology; Referring Provider Advanced Practice Midwife; Visit Provider Advanced Practice Midwife
DX: O48.0 Post-term pregnancy (principal); O70.0 First degree perineal laceration during delivery; O69.81X0 Labor and delivery complicated by cord around neck, without compression, not applicable or unspecified; O77.0 Labor and delivery complicated by meconium in amniotic fluid; Z37.0 Single live birth; Z3A.40 40 weeks gestation of pregnancy
CPT/HCPCS: 36415; 59025; 59409; 76805; 76819; 85025; 86780; 86850; 86900; 86901; 94762; J2210; J2590; J2795; J3010; J3490; J7120; S0191; A9270